=== PATIENT | female | born 1965 | race Caucasian/White ===

== ENCOUNTER 2020-01-27 13:45 | Inpatient (IN) | payer OTHER ==
[~2020-01-27] VITALS: Ht 185.4 cm; Wt 73.6 kg
--- NOTE | 2020-01-27 13:44 | NUR ---
Patient arrived to room 660 via EMS from [facility] at 1344. Patient A&OX4. VSS. No complaints of pain. Patient still complaining of having diarrhea. The patient, KATIANA VALLES, 54 y/o, F admitted by SONIA NASH MD, was given written information regarding hospital policies, unit procedures and contact persons. Valuables were checked and noted. Will continue to monitor.
[2020-01-27 14:00] VITALS: BP 108/71
--- NOTE | 2020-01-27 14:09 | PDOC1 ---
History and Physical Date of Admission Date of Admission DATE: 01/27/20 TIME: 14:08 Identification/Chief Complaint Chief Complaint SEEN IN ER [facility] with nausea, explosive diarrhea and fever x 3 days, no cough NO soa, covid 19 pending from 48 hrs ago, TEMP 104 DEG YESTERDAY VOLUME DEPLETED WITH HYPOTENSION , Denies known Covid contact, started on iv cipro, flagyl in ER, Noted to have neutropenia on cbc, ketonuria, c diff ordered Past Medical History Cardiovascular: No pertinent hx Pulmonary: No pertinent hx GI: No pertinent hx Hepatobiliary: No pertinent hx Infectious disease: No pertinent hx Renal/: No pertinent hx Family History Family History: Hypertension Social History Smoke: No ALCOHOL: none Drugs: None ROS General: YES: Chills, Other (fever) PSYCHOLOGICAL ROS: No: Anxiety, Behavioral Disorder, Concentration difficultie, Decreased libido, Depression, Disorientation, Hallucinations, Hostility, Irritablity, Memory difficulties, Mood Swings, Obsessive thoughts, Physical abuse, Sexual abuse, Sleep disturbances, Suicidal ideation, Other Eyes: No Blurry vision, No Decreased vision, No Double vision, No Dry eyes, No Excessive tearing, No Eye Pain, No Itchy Eyes, No Loss of vision, No Photophobia, No Scotomata, No Uses contacts, No Uses glasses, No Other HEENT: No: Heacaches, Visual Changes, Hearing change, Nasal congestion, Nasal discharge, Oral lesions, Sinus pain, Sore Throat, Epistaxis, Sneezing, Snoring, Tinnitus, Vertigo, Vocal changes, Other ALLERGY AND IMMUNOLOGY: No: Hives, Insect Bite Sensitivity, Itchy/Watery Eyes, Nasal Congestion, Post Nasal Drip, Seasonal Allergies, Other Hematological and Lymphatic: No: Bleeding Problems, Blood Clots, Blood Transfusions, Brusing, Night Sweats, Pallor, Swollen Lymph Nodes, Other Respiratory: No: Cough, Hemoptysis, Orthopnea, Pleuritic Pain, Shortness of breath, SOB with excertion, Sputum Changes, Stridor, Tachypnea, Wheezing, Other Cardiovascular: No Chest Pain, No Palpitations, No Orthopnea, No Paroxysmal Noc. Dyspnea, No Edema, No Lt Headedness, No Other Gastrointestinal: Yes Nausea, Yes Abdominal Pain, Yes Diarrhea; No Vomiting, No Constipation, No Melena, No Hematochezia, No Other Genitourinary: No Dysuria, No Frequency, No Incontinence, No Hematuria, No Retention, No Discharge, No Urgency, No Pain, No Flank Pain, No Other, No , No , No , No , No , No , No Musculoskeletal: No Gait Disturbance, No Joint Pain, No Joint Stiffness, No Joint Swelling, No Muscle Pain, No Muscular Weakness, No Pain In:, No Swelling In:, No Other Neurological: No Behavorial Changes, No Bowel/Bladder ControlChng, No Confusio n, No Dizziness, No Gait Disturbance, No Headaches, No Impaired Coord/balance, No Memory Loss, No Numbness/Tingling, No Seizures, No Speech Problems, No Tremors, No Visual Changes, No Weakness, No Other Skin: Yes Dry Skin; No Eczema, No Hair Changes, No Lumps, No Mole Changes, No Mottling, No Nail Changes, No Pruritus, No Rash, No Skin Lesion Changes, No Other, No Acne Physical Exam General: Alert, Oriented X3, Cooperative, No acute distress HEENT: Atraumatic, PERRLA Lungs: Clear to auscultation, Normal air movement Heart: RRR Breasts: Not examined Abdomen: Normal bowel sounds, Soft Rectal Exam: not examined PELVIC: Examination not indicated Extremities: No clubbing, No cyanosis Skin: No significant lesion Neuro: Normal speech, Sensation intact, Cranial nerves 3-12 NL Psych/Mental Status: Mental status NL, Mood NL VTE Prophylaxis Ordered VTE Prophylaxis Devices: Yes VTE Pharmacological Prophylaxi: Yes Assessment/Plan Assessment/Plan IMPRESSION 1. acute colitis, with terminal ilitis, POSSIBLE INFLAMMATORY BOWEL DISEASE 2, FEVER 3. ABDOMINAL PAIN WITH DIARRHEA 4. Generalized weakness 5. volume depletiopn with dehydration plan admit consult GI BLOOD CULTURES STOOL FOR ENTERIC PATHOGENS NPO IV FLUID SUPPORT COVID 19 SCREENING ID CONSULT ferritin crp ESR iv cipro, flagyl Justifications for Admission Other Justification SONIA NASH MD Jan 27, 2020 14:09
[2020-01-27] MEDS ORDERED: MAG HYDROX/ALUMINUM HYD/SIMETH 30 ML ORAL.SUSP PO PRN (14:30)
[2020-01-27] MEDS ORDERED: 0.9 % SODIUM CHLORIDE 10 ML DISP.SYRIN. IV PRN (14:30)
[2020-01-27] MEDS ORDERED: guaiFENesin ORAL 200 MG/10 ML LIQUID. PO PRN (14:30)
[2020-01-27] MEDS ORDERED: cloNIDine HCL 0.1 MG TABLET PO PRN (14:30)
[2020-01-27] MEDS ORDERED: ALBUTEROL SULFATE 2.5 MG/3 ML NEBU. NEB PRN (14:30)
--- NOTE | 2020-01-27 15:19 | PDOC2 ---
GI CONSULT Date of Service: DATE: 01/27/20 TIME: 15:07 Reason For Consult: acute colitis w/ fever HPI: HPI: Pleasant 54 y/o female transferred from [facility]. Ill since Sunday w/ diarrhea (watery green/brown, incontinent), bodyaches ("even my teeth hurt"), and fever (104 at home). Traveled to [place] last weekend x 4 days, got a new puppy on Sunday. Vomited once here but now is so thirsty. Decreased appetite overall. Also some intermittent lower abdominal discomfort. No chronic GI issues. Denies reflux/heartburn, dysphagia, hematemesis, hemat ochezia, melena, and constipation. Does have a h/o loose stools. No previous EGD or colonoscopy. No GB, liver, pancreas, or PUD history. No NSAIDs. No new medications recently. From [facility]: Notable labs: WBC 2.5, Hgb 13.6, plt 157, bili 1.7, normal AST and ALT and Alk Phos, normal lipase. CT A/P w/ IV contrast: moderate inflammatory fat stranding in RLQ surrounding a few distended SB loops with thickened appearance of wall of ascending colon, mildly dilated appendix, mildly prominent CBD (7.5mm), mildly distended stomach and GB, small free fluid in pelvis. PMH: PMH: partial hysterectomy FH: Family History: No pertinent hx (no GI history) Social History: Smoke: No ALCOHOL: occassional Drugs: None ROS: GEN: +fever HEENT: Denies blurred vision, sore throat CV: Denies chest pain RESP: Denies shortness of air, cough GI: Per HPI : Denies hematuria, dysuria ENDO: Denies weight changes NEURO: Denies confusion, dizziness MSK: +bodyaches SKIN: Denies jaundice, pruritus PE: GEN: NAD - up in chair, covered w/ blanket HEENT: Atraumatic, PERRL LUNGS: CTAB HEART: RRR ABD: NABS, S/ND, vague mild discomfort across lower abdomen EXTREMITY: No edema SKIN: No rashes, no jaundice NEURO/PSYCH: A & O 3 A/P: A/P: Diarrhea, bodyaches, fever Leukopenia Abnormal CT - moderate inflammatory fat stranding in RLQ surrounding a few distended SB loops with thickened appearance of wall of ascending colon CRC screen - none -- Apparently was tested for COVID @ [facility] over the weekend - results unknown. D/w Dr. Fagan - concern for salmonella - will check stool studies (pt says uncollected at [facility] because mixed with urine). Continue Cipro. She asks for water - can try clears. YANIRA ZHU Jan 27, 2020 15:19
[2020-01-27] MEDS: ENOXAPARIN 40 MG/0.4 ML SYRINGE. SQ SCH (15:31)
[2020-01-27] MEDS: IV NORMAL SALINE 1000ML BAG 1,000 ML IV SCH ×2 (15:32→20:59)
[2020-01-27 16:05] LABS: BASO % 0 % (0-3); EOS % 0 % (0-3); HEMATOCRIT 39.8 % (36.0-47.0); HEMOGLOBIN 13.5 g/dL (12.0-15.5); LYMPH # 0.3 x10^3/uL (1.0-4.8); LYMPH % 14 % (24-48); MEAN CORPUSCULAR HEMOGLOBIN 30 pg (25-35); MEAN CORPUSCULAR HGB CONC 34 g/dL (31-37); MEAN CORPUSCULAR VOLUME 89 fL (79-100); MONO # 0.3 x10^3/uL (0.0-1.1); MONO % 13 % (0-9); NEUT # 1.7 x10^3/uL (1.8-7.7); NEUT % 73 % (31-73); PLATELET COUNT 148 x10^3/uL (140-400); RED BLOOD COUNT 4.47 x10^6/uL (3.50-5.40); RED CELL DISTRIBUTION WIDTH 13.2 % (11.5-14.5); WHITE BLOOD COUNT 2.4 x10^3/uL (4.0-11.0)
[2020-01-27 16:51] LABS: ALBUMIN 2.7 g/dL (3.4-5.0); ALBUMIN/GLOBULIN RATIO 0.8 (1.0-1.7); CALCIUM 8.2 mg/dL (8.5-10.1); TOTAL PROTEIN 6.2 g/dL (6.4-8.2)
[2020-01-27 16:52] LABS: C-REACTIVE PROTEIN 232.7 mg/L (0-3.3); CREATININE 0.8 mg/dL (0.6-1.0); POTASSIUM 3.7 mmol/L (3.5-5.1)
[2020-01-27 19:00] VITALS: BP 88/52
[2020-01-27] MEDS: CIPROFLOXACIN 400MG PREMIX 200 ML IV SCH (20:58)
[2020-01-27] MEDS: ACETAMINOPHEN 325 MG TABLET. PO PRN (20:59)
[2020-01-27 23:00] VITALS: BP 85/45
[2020-01-28 03:00] VITALS: BP 97/67
[2020-01-28] MEDS: IV NORMAL SALINE 1000ML BAG 1,000 ML IV SCH ×4 (05:46→22:36)
[2020-01-28 07:00] VITALS: BP 102/58
[2020-01-28] MEDS: CIPROFLOXACIN 400MG PREMIX 200 ML IV SCH ×2 (08:50→22:36)
--- NOTE | 2020-01-28 10:03 | PDOC ---
Infectious Disease Note Vital Sign Vital Signs Vital Signs Date Time Temp Pulse Resp B/P (MAP) Pulse Ox O2 Delivery O2 Flow Rate FiO2 01/28/20 08:00 Room Air 01/28/20 07:00 98.2 77 16 102/58 (73) 97 98.2 Labs Lab Laboratory Tests Test 01/27/20 15:40 White Blood Count 2.4 x10^3/uL (4.0-11.0) Red Blood Count 4.47 x10^6/uL (3.50-5.40) Hemoglobin 13.5 g/dL (12.0-15.5) Hematocrit 39.8 % (36.0-47.0) Mean Corpuscular Volume 89 fL (79-100) Mean Corpuscular Hemoglobin 30 pg (25-35) Mean Corpuscular Hemoglobin Concent 34 g/dL (31-37) Red Cell Distribution Width 13.2 % (11.5-14.5) Platelet Count 148 x10^3/uL (140-400) Neutrophils (%) (Auto) 73 % (31-73) Lymphocytes (%) (Auto) 14 % (24-48) Monocytes (%) (Auto) 13 % (0-9) Eosinophils (%) (Auto) 0 % (0-3) Basophils (%) (Auto) 0 % (0-3) Neutrophils # (Auto) 1.7 x10^3/uL (1.8-7.7) Lymphocytes # (Auto) 0.3 x10^3/uL (1.0-4.8) Monocytes # (Auto) 0.3 x10^3/uL (0.0-1.1) Eosinophils # (Auto) 0.0 x10^3/uL (0.0-0.7) Basophils # (Auto) 0.0 x10^3/uL (0.0-0.2) Sodium Level 136 mmol/L (136-145) Potassium Level 3.7 mmol/L (3.5-5.1) Chloride Level 105 mmol/L (98-107) Carbon Dioxide Level 23 mmol/L (21-32) Anion Gap 8 (6-14) Blood Urea Nitrogen 6 mg/dL (7-20) Creatinine 0.8 mg/dL (0.6-1.0) Estimated GFR (Cockcroft-Gault) 75.0 BUN/Creatinine Ratio 8 (6-20) Glucose Level 181 mg/dL (70-99) Calcium Level 8.2 mg/dL (8.5-10.1) Ferritin 840 ng/mL (8-252) Total Bilirubin 1.0 mg/dL (0.2-1.0) Aspartate Amino Transf (AST/SGOT) 29 U/L (15-37) Alanine Aminotransferase (ALT/SGPT) 22 U/L (14-59) Alkaline Phosphatase 71 U/L (46-116) C-Reactive Protein, Quantitative 232.7 mg/L (0-3.3) Total Protein 6.2 g/dL (6.4-8.2) Albumin 2.7 g/dL (3.4-5.0) Albumin/Globulin Ratio 0.8 (1.0-1.7) Micro Abnormal CT - moderate inflammatory fat stranding in RLQ surrounding a few distended SB loops with thickened appearance of wall of ascending colon Objective Assessment Fever Leukopenia Diarrhea Colitis COVID neg Plan Plan of Care Cont Cipro/Flagyl - clinically some better F/u labs and cults - d/w micro Thank you # [id number] FARHEEN ANDERSON MD Jan 28, 2020 10:03
--- NOTE | 2020-01-28 10:18 | PDOC ---
Date of Service: DATE: 01/28/20 TIME: 10:16 Subjective: Subjective: Feels the same - ongoing diarrhea, lower abdominal ache, nausea. Wants to know if she can have mashed potatoes. Objective: Objective: Tmax 100 Vital Signs: Vital Signs Date Time Temp Pulse Resp B/P (MAP) Pulse Ox O2 Delivery O2 Flow Rate FiO2 01/28/20 08:00 Room Air 01/28/20 07:00 98.2 77 16 102/58 (73) 97 98.2 Labs: Laboratory Tests Test 01/27/20 15:40 White Blood Count 2.4 x10^3/uL Red Blood Count 4.47 x10^6/uL Hemoglobin 13.5 g/dL Hematocrit 39.8 % Mean Corpuscular Volume 89 fL Mean Corpuscular Hemoglobin 30 pg Mean Corpuscular Hemoglobin Concent 34 g/dL Red Cell Distribution Width 13.2 % Platelet Count 148 x10^3/uL Neutrophils (%) (Auto) 73 % Lymphocytes (%) (Auto) 14 % Monocytes (%) (Auto) 13 % Eosinophils (%) (Auto) 0 % Basophils (%) (Auto) 0 % Neutrophils # (Auto) 1.7 x10^3/uL Lymphocytes # (Auto) 0.3 x10^3/uL Monocytes # (Auto) 0.3 x10^3/uL Eosinophils # (Auto) 0.0 x10^3/uL Basophils # (Auto) 0.0 x10^3/uL Sodium Level 136 mmol/L Potassium Level 3.7 mmol/L Chloride Level 105 mmol/L Carbon Dioxide Level 23 mmol/L Anion Gap 8 Blood Urea Nitrogen 6 mg/dL Creatinine 0.8 mg/dL Estimated GFR (Cockcroft-Gault) 75.0 BUN/Creatinine Ratio 8 Glucose Level 181 mg/dL Calcium Level 8.2 mg/dL Ferritin 840 ng/mL Total Bilirubin 1.0 mg/dL Aspartate Amino Transf (AST/SGOT) 29 U/L Alanine Aminotransferase (ALT/SGPT) 22 U/L Alkaline Phosphatase 71 U/L C-Reactive Protein, Quantitative 232.7 mg/L Total Protein 6.2 g/dL Albumin 2.7 g/dL Albumin/Globulin Ratio 0.8 PE: GEN: NAD LUNGS: CTAB HEART: RRR ABD: BS+, soft, lower abdomen tender to light touch NEURO/PSYCH: A & O 3 A/P: Diarrhea, abd pain, bodyaches, fever Leukopenia, elevated CRP Abnormal CT - moderate inflammatory fat stranding in RLQ surrounding a few distended SB loops with thickened appearance of wall of ascending colon COVID negative @ [facility] -- Await pending tests. Antibiotics per ID. Would keep to clears for now. Justicifation of Admission Dx: Justifications for Admission: Justification of Admission Dx: Yes YANIRA ZHU Jan 28, 2020 10:18
--- NOTE | 2020-01-28 10:31 | PDOC ---
PROGRESS NOTES Date of Service: DATE: 01/28/20 TIME: 10:31 Chief Complaint Chief Complaint VTE Prophylaxis Ordered VTE Prophylaxis Devices: Yes VTE Pharmacological Prophylaxi: Yes Assessment/Plan IMPRESSION 1. acute colitis, with terminal ilitis, suspect acute INFLAMMATORY BOWEL DISEASE 2, FEVER 3. ABDOMINAL PAIN WITH DIARRHEA 4. Generalized weakness 5. volume depletion with dehydration 6. LEUKOPENIA crp 232 01/27 plan admit consult GI BLOOD CULTURES STOOL FOR ENTERIC PATHOGENS CLEAR LIQUIDS IV FLUID SUPPORT COVID 19 SCREENING ID CONSULT NOTED ferritin crp ESR iv cipro, flagyl heme consult D/W RN is dpoa 37 min pt exam, chart review, > 50% of time spent with exam, chart review, pt ca re coordination History of Present Illness History of Present Illness Identification/Chief Complaint Chief Complaint SEEN IN ER [facility] with nausea, explosive diarrhea and fever x 3 days, no cough NO soa, covid 19 pending from 48 hrs ago, TEMP 104 DEG 01/25 VOLUME DEPLETED WITH HYPOTENSION , Denies known Covid contact, started on iv cipro, flagyl in ER, Noted to have neutropenia on cbc, ketonuria, c diff ordered THEY HAVE A FRRM, WITH A POND that she swims in often Past Medical History Cardiovascular: No pertinent hx Pulmonary: No pertinent hx GI: No pertinent hx Hepatobiliary: No pertinent hx Infectious disease: No pertinent hx Renal/: No pertinent hx Family History Family History: Hypertension no fhx IBD Social History Smoke: No ALCOHOL: none Drugs: None Vitals Vitals Vital Signs Date Time Temp Pulse Resp B/P (MAP) Pulse Ox O2 Delivery O2 Flow Rate FiO2 01/28/20 08:00 Room Air 01/28/20 07:00 98.2 77 16 102/58 (73) 97 98.2 Physical Exam General: Alert, Oriented X3, Cooperative, No acute distress Heart: Regular rate, Normal S1, Normal S2 Lungs: Clear Abdomen: Normal bowel sounds, Soft, No tenderness Extremities: No clubbing, No cyanosis Skin: No significant lesion Labs LABS Laboratory Tests Test 01/27/20 15:40 White Blood Count 2.4 x10^3/uL (4.0-11.0) Red Blood Count 4.47 x10^6/uL (3.50-5.40) Hemoglobin 13.5 g/dL (12.0-15.5) Hematocrit 39.8 % (36.0-47.0) Mean Corpuscular Volume 89 fL (79-100) Mean Corpuscular Hemoglobin 30 pg (25-35) Mean Corpuscular Hemoglobin Concent 34 g/dL (31-37) Red Cell Distribution Width 13.2 % (11.5-14.5) Platelet Count 148 x10^3/uL (140-400) Neutrophils (%) (Auto) 73 % (31-73) Lymphocytes (%) (Auto) 14 % (24-48) Monocytes (%) (Auto) 13 % (0-9) Eosinophils (%) (Auto) 0 % (0-3) Basophils (%) (Auto) 0 % (0-3) Neutrophils # (Auto) 1.7 x10^3/uL (1.8-7.7) Lymphocytes # (Auto) 0.3 x10^3/uL (1.0-4.8) Monocytes # (Auto) 0.3 x10^3/uL (0.0-1.1) Eosinophils # (Auto) 0.0 x10^3/uL (0.0-0.7) Basophils # (Auto) 0.0 x10^3/uL (0.0-0.2) Sodium Level 136 mmol/L (136-145) Potassium Level 3.7 mmol/L (3.5-5.1) Chloride Level 105 mmol/L (98-107) Carbon Dioxide Level 23 mmol/L (21-32) Anion Gap 8 (6-14) Blood Urea Nitrogen 6 mg/dL (7-20) Creatinine 0.8 mg/dL (0.6-1.0) Estimated GFR (Cockcroft-Gault) 75.0 BUN/Creatinine Ratio 8 (6-20) Glucose Level 181 mg/dL (70-99) Calcium Level 8.2 mg/dL (8.5-10.1) Ferritin 840 ng/mL (8-252) Total Bilirubin 1.0 mg/dL (0.2-1.0) Aspartate Amino Transf (AST/SGOT) 29 U/L (15-37) Alanine Aminotransferase (ALT/SGPT) 22 U/L (14-59) Alkaline Phosphatase 71 U/L (46-116) C-Reactive Protein, Quantitative 232.7 mg/L (0-3.3) Total Protein 6.2 g/dL (6.4-8.2) Albumin 2.7 g/dL (3.4-5.0) Albumin/Globulin Ratio 0.8 (1.0-1.7) Assessment and Plan Assessmemt and Plan What Is a Power of Company Manager? A power of state's attorney (POA) is a legal document giving one person (the agent or [id number]) the power to act for another person (the principal). The agent can have broad legal authority or limited authority to make legal decisions about the principal's property, finances or medical care. The power of state's attorney is frequently used in the event of a principal's illness or disability, or when the principal can't be present to sign necessary legal documents for financial transactions. A power of state's attorney can end for a number of reasons, such as when the principal dies, the principal revokes it, a court invalidates it, the principal divorces their spouse, who happens to be the agent, or the agent can no longer carry out the outlined responsibilities. Conventional POAs lapse when the creator becomes incapacitated, but a durable POA remains in force to enable the agent to manage the creators affairs, and a springing POA comes into effect only if and when the creator of the POA becomes incapacitated. A medical or healthcare POA enables an agent to make medical decisions on behalf of an incapacitated person. [employer] Take[employer] A power of state's attorney (POA) is a legal document giving one person, the agent or [id number] the power to act for another person, the principal. The agent can have broad legal authority or limited authority to make decisions about the principal's property, finances or medical care. The power of state's attorney is often used when a principal becomes ill or disabled, or when they can't be present to sign necessary legal documents for financial transactions. Understanding Power of Company Manager A power of state's attorney should be considered when planning for long-term care. There are different types of POAs that fall under either a general power of state's attorney or limited power of state's attorney. Comment Review of Relevant I have reviewed the following items wiliam (where applicable) has been applied. Labs Laboratory Tests Test 01/27/20 15:40 White Blood Count 2.4 x10^3/uL (4.0-11.0) Red Blood Count 4.47 x10^6/uL (3.50-5.40) Hemoglobin 13.5 g/dL (12.0-15.5) Hematocrit 39.8 % (36.0-47.0) Mean Corpuscular Volume 89 fL (79-100) Mean Corpuscular Hemoglobin 30 pg (25-35) Mean Corpuscular Hemoglobin Concent 34 g/dL (31-37) Red Cell Distribution Width 13.2 % (11.5-14.5) Platelet Count 148 x10^3/uL (140-400) Neutrophils (%) (Auto) 73 % (31-73) Lymphocytes (%) (Auto) 14 % (24-48) Monocytes (%) (Auto) 13 % (0-9) Eosinophils (%) (Auto) 0 % (0-3) Basophils (%) (Auto) 0 % (0-3) Neutrophils # (Auto) 1.7 x10^3/uL (1.8-7.7) Lymphocytes # (Auto) 0.3 x10^3/uL (1.0-4.8) Monocytes # (Auto) 0.3 x10^3/uL (0.0-1.1) Eosinophils # (Auto) 0.0 x10^3/uL (0.0-0.7) Basophils # (Auto) 0.0 x10^3/uL (0.0-0.2) Sodium Level 136 mmol/L (136-145) Potassium Level 3.7 mmol/L (3.5-5.1) Chloride Level 105 mmol/L (98-107) Carbon Dioxide Level 23 mmol/L (21-32) Anion Gap 8 (6-14) Blood Urea Nitrogen 6 mg/dL (7-20) Creatinine 0.8 mg/dL (0.6-1.0) Estimated GFR (Cockcroft-Gault) 75.0 BUN/Creatinine Ratio 8 (6-20) Glucose Level 181 mg/dL (70-99) Calcium Level 8.2 mg/dL (8.5-10.1) Ferritin 840 ng/mL (8-252) Total Bilirubin 1.0 mg/dL (0.2-1.0) Aspartate Amino Transf (AST/SGOT) 29 U/L (15-37) Alanine Aminotransferase (ALT/SGPT) 22 U/L (14-59) Alkaline Phosphatase 71 U/L (46-116) C-Reactive Protein, Quantitative 232.7 mg/L (0-3.3) Total Protein 6.2 g/dL (6.4-8.2) Albumin 2.7 g/dL (3.4-5.0) Albumin/Globulin Ratio 0.8 (1.0-1.7) Laboratory Tests Test 01/27/20 15:40 White Blood Count 2.4 x10^3/uL (4.0-11.0) Red Blood Count 4.47 x10^6/uL (3.50-5.40) Hemoglobin 13.5 g/dL (12.0-15.5) Hematocrit 39.8 % (36.0-47.0) Mean Corpuscular Volume 89 fL (79-100) Mean Corpuscular Hemoglobin 30 pg (25-35) Mean Corpuscular Hemoglobin Concent 34 g/dL (31-37) Red Cell Distribution Width 13.2 % (11.5-14.5) Platelet Count 148 x10^3/uL (140-400) Neutrophils (%) (Auto) 73 % (31-73) Lymphocytes (%) (Auto) 14 % (24-48) Monocytes (%) (Auto) 13 % (0-9) Eosinophils (%) (Auto) 0 % (0-3) Basophils (%) (Auto) 0 % (0-3) Neutrophils # (Auto) 1.7 x10^3/uL (1.8-7.7) Lymphocytes # (Auto) 0.3 x10^3/uL (1.0-4.8) Monocytes # (Auto) 0.3 x10^3/uL (0.0-1.1) Eosinophils # (Auto) 0.0 x10^3/uL (0.0-0.7) Basophils # (Auto) 0.0 x10^3/uL (0.0-0.2) Sodium Level 136 mmol/L (136-145) Potassium Level 3.7 mmol/L (3.5-5.1) Chloride Level 105 mmol/L (98-107) Carbon Dioxide Level 23 mmol/L (21-32) Anion Gap 8 (6-14) Blood Urea Nitrogen 6 mg/dL (7-20) Creatinine 0.8 mg/dL (0.6-1.0) Estimated GFR (Cockcroft-Gault) 75.0 BUN/Creatinine Ratio 8 (6-20) Glucose Level 181 mg/dL (70-99) Calcium Level 8.2 mg/dL (8.5-10.1) Ferritin 840 ng/mL (8-252) Total Bilirubin 1.0 mg/dL (0.2-1.0) Aspartate Amino Transf (AST/SGOT) 29 U/L (15-37) Alanine Aminotransferase (ALT/SGPT) 22 U/L (14-59) Alkaline Phosphatase 71 U/L (46-116) C-Reactive Protein, Quantitative 232.7 mg/L (0-3.3) Total Protein 6.2 g/dL (6.4-8.2) Albumin 2.7 g/dL (3.4-5.0) Albumin/Globulin Ratio 0.8 (1.0-1.7) Medications Current Medications Ciprofloxacin/ Dextrose 200 ml @ 200 mls/hr Q12HR IV Last administered on 01/28/20at 08:50; Start 01/27/20 at 21:00 Metronidazole 100 ml @ 100 mls/hr Q8HRS IV Last administered on 01/28/20at 05:47; Start 01/27/20 at 15:30 Sodium Chloride (Normal Saline Flush) 3 ml QSHIFT PRN IV AFTER MEDS AND BLOOD DRAWS; Start 01/27/20 at 14:30 Sodium Chloride 1,000 ml @ 150 mls/hr Q6H40M IV Last administered on 01/28/20at 05:46; Start 01/27/20 at 14:27 Ondansetron HCl (Zofran) 4 mg PRN Q4HRS PRN IV NAUSEA/VOMITING; Start 01/27/20 at 14:30 Acetaminophen (Tylenol) 650 mg PRN Q4HRS PRN PO TEMP OVER 100.4F OR MILD PAIN Last administered on 01/27/20at 20:59; Start 01/27/20 at 14:30 Al Hydroxide/Mg Hydroxide (Mylanta Plus Xs) 30 ml PRN DAILY PRN PO HEARTBURN / GAS; Start 01/27/20 at 14:30 Clonidine HCl (Catapres) 0.1 mg PRN Q6HRS PRN PO SBP>160 OR DBP>90; Start 01/27/20 at 14:30 Albuterol Sulfate (Ventolin Neb Soln) 2.5 mg PRN Q4HRS PRN NEB SHORTNESS OF BREATH; Start 01/27/20 at 14:30 Guaifenesin (Robitussin) 200 mg PRN Q4HRS PRN PO COUGH; Start 01/27/20 at 14:30 Lorazepam (Ativan) 0.5 mg PRN Q4HRS PRN PO ANXIETY / AGITATION; Start 01/27/20 at 14:30 Enoxaparin Sodium (Lovenox 40mg Syringe) 40 mg Q24H SQ Last administered on 01/27/20at 15:31; Start 01/27/20 at 16:00 Active Scripts Active Reported No Known Medications Prior To Admisstion (Info) Each 1 Each 1X Vitals/I & O Vital Sign - Last 24 Hours 01/27/20 01/27/20 01/27/20 01/27/20 14:00 14:00 19:00 20:00 Temp 98.6 100.0 98.6 100.0 Pulse 90 90 Resp 12 18 B/P (MAP) 108/71 (83) 88/52 (64) Pulse Ox 100 96 O2 Delivery Room Air Room Air Room Air Room Air 01/27/20 01/28/20 01/28/20 01/28/20 23:00 03:00 07:00 08:00 Temp 98.3 98.4 98.2 98.3 98.4 98.2 Pulse 77 67 77 Resp 18 18 16 B/P (MAP) 85/45 (58) 97/67 (77) 102/58 (73) Pulse Ox 96 96 97 O2 Delivery Room Air Room Air Room Air Room Air Intake and Output 01/27/20 01/27/20 01/28/20 15:00 23:00 07:00 Intake Total 640 ml Balance 640 ml Justicifation of Admission Dx: Justifications for Admission: Justification of Admission Dx: Yes SONIA NASH MD Jan 28, 2020 10:31
[2020-01-28] MEDS: ACETAMINOPHEN 325 MG TABLET. PO PRN ×3 (10:57→20:51)
[2020-01-28 11:06] VITALS: BP 123/73
--- NOTE | 2020-01-28 11:22 | CONS ---
DATE OF CONSULTATION: 01/28/2020 LOCATION: The patient's room is 662. REQUESTING PHYSICIAN: Dr. Hernandez. REASON FOR CONSULTATION: Fever and diarrhea. HISTORY OF PRESENT ILLNESS: The patient is a 54-year-old female without significant past medical history aside from a partial hysterectomy, who presented to [facility] secondary to development of fever; watery diarrhea, green, brown; incontinence and body aches with fever of a 104. She did travel to [place] on 01/15, returned on 01/18. Denies any ill contacts. She has not taken any antimicrobials for approximately 10 years and denies any contact with anybody who has recently had any antimicrobials or diarrhea. 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 She had vomited once. Her appetite has decreased and from [facility], she was transferred to [facility]. Of note, she did have a white blood cell count of 2.5. She underwent a CT scan of the abdomen and pelvis showed moderate inflammatory fat stranding in the right lower quadrant, shown in a few distended small bowel loops with thickened appearance of the wall of the ascending colon with mildly dilated appendix, mildly prominent common bile duct of 7.5 mm, mildly distended stomach and gallbladder, small free fluid in the pelvis. She was placed on Flagyl as well as ciprofloxacin. Her temperature curve has improved here. She is still having some loose stools, but does feel somewhat better with some decreasing pain and has increased appetite. She has no chest discomfort. No shortness of air. Denies any ill contacts. No dysuria, frequency, or urgency. She denies any rashes. PAST MEDICAL HISTORY: Essentially negative aside from a partial hysterectomy. REVIEW OF SYSTEMS: Otherwise negative except for mentioned above. ALLERGIES: No known drug allergies. SOCIAL HISTORY: Occasional alcohol. No tobacco. Does live in a farm. Denies any ill contacts. FAMILY HISTORY: Negative for any Crohn's disease or ulcerative colitis or other GI history and no ill contacts. CURRENT MEDICATIONS: Include IV ciprofloxacin, IV metronidazole and p.r.n. medications including Tylenol, Ventolin, Catapres, Lovenox, guaifenesin, lorazepam, trimethoprim and Zofran. PHYSICAL EXAMINATION: VITAL SIGNS: T-max has been 100, currently 98.2, pulse 77, respirations 16, blood pressure 102/58, satting 97% on room air. CONSTITUTIONAL: She is lying in bed. She appears cooperative. She appears comfortable. She is in no acute distress. HEENT: Pupils are equal and reactive. She has normal conjunctivae. Oral cavity, pharynx was clear. NECK: Supple. Good range of motion. LUNGS: Clear to auscultation bilaterally. HEART: S1, S2. ABDOMEN: Flat, nondistended. Some mild tenderness. There is no guarding or rebound. EXTREMITIES: Without clubbing or cyanosis. No gross edema. SKIN: Without generalized rash and is warm to touch. NEUROLOGIC: She is nonfocal. PSYCHIATRIC: Affect is appropriate. LABORATORY DATA: White count 2.4, hemoglobin 13.5, platelets 148, neutrophils 73, lymphs were 14, monos were 13. Creatinine is 0.8, glucose was 181, AST 29, ALT 22, alkaline phosphatase 71. C-reactive protein of 232.7. Albumin of 2.7. RADIOLOGY: Reviewed in history of present illness. IMPRESSION: 1. Fever. 2. Leukopenia. 3. Diarrhea. 4. Colitis. 5. Her COVID test was negative. RECOMMENDATIONS: Continue Cipro and Flagyl. Clinically, she is some better. We will follow up labs and cultures. I did discuss with Micro, blood cultures have been ordered as well as stool samples and urine. We will obtain laboratory values in the morning. Thank you Ms. Kathie Barahona for asking us to participate in this patient's care. Should you have further questions or concerns, please do not hesitate to contact me. FARHEEN ANDERSON MD DR: JEFFRY/cody JOB#: [id number] / [id number] NATALIIA
[2020-01-28 14:44] VITALS: BP 116/68
[2020-01-28] MEDS: ENOXAPARIN 40 MG/0.4 ML SYRINGE. SQ SCH (17:41)
[2020-01-28 19:00] VITALS: BP 108/63
[2020-01-28] MEDS: LORazepam 0.5 MG TABLET PO PRN (20:51)
[2020-01-28 22:46] VITALS: BP 118/65
[2020-01-29 03:00] VITALS: BP 113/67
[2020-01-29 05:27] LABS: BASO % 0 % (0-3); EOS % 1 % (0-3); HEMATOCRIT 31.5 % (36.0-47.0); HEMOGLOBIN 10.8 g/dL (12.0-15.5); LYMPH # 0.8 x10^3/uL (1.0-4.8); LYMPH % 30 % (24-48); MEAN CORPUSCULAR HEMOGLOBIN 30 pg (25-35); MEAN CORPUSCULAR HGB CONC 34 g/dL (31-37); MEAN CORPUSCULAR VOLUME 88 fL (79-100); MONO # 0.3 x10^3/uL (0.0-1.1); MONO % 10 % (0-9); NEUT # 1.6 x10^3/uL (1.8-7.7); NEUT % 59 % (31-73); PLATELET COUNT 131 x10^3/uL (140-400); RED BLOOD COUNT 3.59 x10^6/uL (3.50-5.40); RED CELL DISTRIBUTION WIDTH 13.3 % (11.5-14.5); WHITE BLOOD COUNT 2.6 x10^3/uL (4.0-11.0)
[2020-01-29 06:17] LABS: ALBUMIN 2.3 g/dL (3.4-5.0); ALBUMIN/GLOBULIN RATIO 0.8 (1.0-1.7); CALCIUM 8.2 mg/dL (8.5-10.1); CREATININE 0.6 mg/dL (0.6-1.0); GFR 104.6; POTASSIUM 3.4 mmol/L (3.5-5.1); TOTAL BILIRUBIN 0.3 mg/dL (0.2-1.0); TOTAL PROTEIN 5.1 g/dL (6.4-8.2)
--- NOTE | 2020-01-29 07:18 | PDOC ---
PROGRESS NOTES Date of Service: DATE: 01/29/20 TIME: 07:18 Chief Complaint Chief Complaint VTE Prophylaxis Ordered VTE Prophylaxis Devices: Yes VTE Pharmacological Prophylaxi: Yes Assessment/Plan IMPRESSION 1. acute colitis, with terminal ilitis, suspect acute INFLAMMATORY BOWEL DISEASE 2, FEVER 3. ABDOMINAL PAIN WITH DIARRHEA 4. Generalized weakness 5. volume depletion with dehydration 6. LEUKOPENIA 7. SEVERE PROTEIN-CALORIC MALNUTRITION crp 232 01/27 01/28 NO FEVER TODAY, second covid pending D/W RN plan admit consult GI BLOOD CULTURES STOOL FOR ENTERIC PATHOGENS CLEAR LIQUIDS IV FLUID SUPPORT COVID 19 SCREENING ID CONSULT NOTED ferritin crp ESR iv cipro, flagyl heme consult D/W RN is dpoa 27 min pt exam, chart review, > 50% of time spent with exam, chart review, pt care coordination History of Present Illness History of Present Illness Identification/Chief Complaint Chief Complaint SEEN IN ER [facility] with nausea, explosive diarrhea and fever x 3 days, no cough NO soa, covid 19 pending from 48 hrs ago, TEMP 104 DEG 01/25 VOLUME DEPLETED WITH HYPOTENSION , Denies known Covid contact, started on iv cipro, flagyl in ER, Noted to have neutropenia on cbc, ketonuria, c diff ordered THEY HAVE A FRRM, WITH A POND that she swims in often Past Medical History Cardiovascular: No pertinent hx Pulmonary: No pertinent hx GI: No pertinent hx Hepatobiliary: No pertinent hx Infectious disease: No pertinent hx Renal/: No pertinent hx Family History Family History: Hypertension no fhx IBD Social History Smoke: No ALCOHOL: none Drugs: None Vitals Vitals Vital Signs Date Time Temp Pulse Resp B/P (MAP) Pulse Ox O2 Delivery O2 Flow Rate FiO2 01/29/20 03:00 98.2 71 18 113/67 (82) 98 Room Air 98.2 Physical Exam General: Alert, Oriented X3, Cooperative, No acute distress Heart: Regular rate, Normal S1, Normal S2 Lungs: Clear Abdomen: Normal bowel sounds, Soft, No tenderness Extremities: No clubbing, No cyanosis Skin: No significant lesion Labs LABS Laboratory Tests Test 01/28/20 09:45 01/29/20 04:17 Stool Campylobacter PCR Positive (NEGATIVE) Stool E. coli Shiga Toxins (PCR) Negative (NEGATIVE) Stool Salmonella PCR Negative (NEGATIVE) Stool Shigella PCR Negative (NEGATIVE) Clostridium difficile Toxin (PCR) Negative (NEGATIVE) White Blood Count 2.6 x10^3/uL (4.0-11.0) Red Blood Count 3.59 x10^6/uL (3.50-5.40) Hemoglobin 10.8 g/dL (12.0-15.5) Hematocrit 31.5 % (36.0-47.0) Mean Corpuscular Volume 88 fL (79-100) Mean Corpuscular Hemoglobin 30 pg (25-35) Mean Corpuscular Hemoglobin Concent 34 g/dL (31-37) Red Cell Distribution Width 13.3 % (11.5-14.5) Platelet Count 131 x10^3/uL (140-400) Neutrophils (%) (Auto) 59 % (31-73) Lymphocytes (%) (Auto) 30 % (24-48) Monocytes (%) (Auto) 10 % (0-9) Eosinophils (%) (Auto) 1 % (0-3) Basophils (%) (Auto) 0 % (0-3) Neutrophils # (Auto) 1.6 x10^3/uL (1.8-7.7) Lymphocytes # (Auto) 0.8 x10^3/uL (1.0-4.8) Monocytes # (Auto) 0.3 x10^3/uL (0.0-1.1) Eosinophils # (Auto) 0.0 x10^3/uL (0.0-0.7) Basophils # (Auto) 0.0 x10^3/uL (0.0-0.2) Sodium Level 141 mmol/L (136-145) Potassium Level 3.4 mmol/L (3.5-5.1) Chloride Level 108 mmol/L (98-107) Carbon Dioxide Level 25 mmol/L (21-32) Anion Gap 8 (6-14) Blood Urea Nitrogen 5 mg/dL (7-20) Creatinine 0.6 mg/dL (0.6-1.0) Estimated GFR (Cockcroft-Gault) 104.6 BUN/Creatinine Ratio 8 (6-20) Glucose Level 142 mg/dL (70-99) Calcium Level 8.2 mg/dL (8.5-10.1) Total Bilirubin 0.3 mg/dL (0.2-1.0) Aspartate Amino Transf (AST/SGOT) 21 U/L (15-37) Alanine Aminotransferase (ALT/SGPT) 17 U/L (14-59) Alkaline Phosphatase 62 U/L (46-116) Total Protein 5.1 g/dL (6.4-8.2) Albumin 2.3 g/dL (3.4-5.0) Albumin/Globulin Ratio 0.8 (1.0-1.7) Comment Review of Relevant I have reviewed the following items wiliam (where applicable) has been applied. Labs Laboratory Tests Test 01/27/20 15:40 01/28/20 09:45 01/29/20 04:17 White Blood Count 2.4 x10^3/uL (4.0-11.0) 2.6 x10^3/uL (4.0-11.0) Red Blood Count 4.47 x10^6/uL (3.50-5.40) 3.59 x10^6/uL (3.50-5.40) Hemoglobin 13.5 g/dL (12.0-15.5) 10.8 g/dL (12.0-15.5) Hematocrit 39.8 % (36.0-47.0) 31.5 % (36.0-47.0) Mean Corpuscular Volume 89 fL (79-100) 88 fL (79-100) Mean Corpuscular Hemoglobin 30 pg (25-35) 30 pg (25-35) Mean Corpuscular Hemoglobin Concent 34 g/dL (31-37) 34 g/dL (31-37) Red Cell Distribution Width 13.2 % (11.5-14.5) 13.3 % (11.5-14.5) Platelet Count 148 x10^3/uL (140-400) 131 x10^3/uL (140-400) Neutrophils (%) (Auto) 73 % (31-73) 59 % (31-73) Lymphocytes (%) (Auto) 14 % (24-48) 30 % (24-48) Monocytes (%) (Auto) 13 % (0-9) 10 % (0-9) Eosinophils (%) (Auto) 0 % (0-3) 1 % (0-3) Basophils (%) (Auto) 0 % (0-3) 0 % (0-3) Neutrophils # (Auto) 1.7 x10^3/uL (1.8-7.7) 1.6 x10^3/uL (1.8-7.7) Lymphocytes # (Auto) 0.3 x10^3/uL (1.0-4.8) 0.8 x10^3/uL (1.0-4.8) Monocytes # (Auto) 0.3 x10^3/uL (0.0-1.1) 0.3 x10^3/uL (0.0-1.1) Eosinophils # (Auto) 0.0 x10^3/uL (0.0-0.7) 0.0 x10^3/uL (0.0-0.7) Basophils # (Auto) 0.0 x10^3/uL (0.0-0.2) 0.0 x10^3/uL (0.0-0.2) Sodium Level 136 mmol/L (136-145) 141 mmol/L (136-145) Potassium Level 3.7 mmol/L (3.5-5.1) 3.4 mmol/L (3.5-5.1) Chloride Level 105 mmol/L (98-107) 108 mmol/L (98-107) Carbon Dioxide Level 23 mmol/L (21-32) 25 mmol/L (21-32) Anion Gap 8 (6-14) 8 (6-14) Blood Urea Nitrogen 6 mg/dL (7-20) 5 mg/dL (7-20) Creatinine 0.8 mg/dL (0.6-1.0) 0.6 mg/dL (0.6-1.0) Estimated GFR (Cockcroft-Gault) 75.0 104.6 BUN/Creatinine Ratio 8 (6-20) 8 (6-20) Glucose Level 181 mg/dL (70-99) 142 mg/dL (70-99) Calcium Level 8.2 mg/dL (8.5-10.1) 8.2 mg/dL (8.5-10.1) Ferritin 840 ng/mL (8-252) Total Bilirubin 1.0 mg/dL (0.2-1.0) 0.3 mg/dL (0.2-1.0) Aspartate Amino Transf (AST/SGOT) 29 U/L (15-37) 21 U/L (15-37) Alanine Aminotransferase (ALT/SGPT) 22 U/L (14-59) 17 U/L (14-59) Alkaline Phosphatase 71 U/L (46-116) 62 U/L (46-116) C-Reactive Protein, Quantitative 232.7 mg/L (0-3.3) Total Protein 6.2 g/dL (6.4-8.2) 5.1 g/dL (6.4-8.2) Albumin 2.7 g/dL (3.4-5.0) 2.3 g/dL (3.4-5.0) Albumin/Globulin Ratio 0.8 (1.0-1.7) 0.8 (1.0-1.7) Stool Campylobacter PCR Positive (NEGATIVE) Stool E. coli Shiga Toxins (PCR) Negative (NEGATIVE) Stool Salmonella PCR Negative (NEGATIVE) Stool Shigella PCR Negative (NEGATIVE) Clostridium difficile Toxin (PCR) Negative (NEGATIVE) Laboratory Tests Test 01/28/20 09:45 01/29/20 04:17 Stool Campylobacter PCR Positive (NEGATIVE) Stool E. coli Shiga Toxins (PCR) Negative (NEGATIVE) Stool Salmonella PCR Negative (NEGATIVE) Stool Shigella PCR Negative (NEGATIVE) Clostridium difficile Toxin (PCR) Negative (NEGATIVE) White Blood Count 2.6 x10^3/uL (4.0-11.0) Red Blood Count 3.59 x10^6/uL (3.50-5.40) Hemoglobin 10.8 g/dL (12.0-15.5) Hematocrit 31.5 % (36.0-47.0) Mean Corpuscular Volume 88 fL (79-100) Mean Corpuscular Hemoglobin 30 pg (25-35) Mean Corpuscular Hemoglobin Concent 34 g/dL (31-37) Red Cell Distribution Width 13.3 % (11.5-14.5) Platelet Count 131 x10^3/uL (140-400) Neutrophils (%) (Auto) 59 % (31-73) Lymphocytes (%) (Auto) 30 % (24-48) Monocytes (%) (Auto) 10 % (0-9) Eosinophils (%) (Auto) 1 % (0-3) Basophils (%) (Auto) 0 % (0-3) Neutrophils # (Auto) 1.6 x10^3/uL (1.8-7.7) Lymphocytes # (Auto) 0.8 x10^3/uL (1.0-4.8) Monocytes # (Auto) 0.3 x10^3/uL (0.0-1.1) Eosinophils # (Auto) 0.0 x10^3/uL (0.0-0.7) Basophils # (Auto) 0.0 x10^3/uL (0.0-0.2) Sodium Level 141 mmol/L (136-145) Potassium Level 3.4 mmol/L (3.5-5.1) Chloride Level 108 mmol/L (98-107) Carbon Dioxide Level 25 mmol/L (21-32) Anion Gap 8 (6-14) Blood Urea Nitrogen 5 mg/dL (7-20) Creatinine 0.6 mg/dL (0.6-1.0) Estimated GFR (Cockcroft-Gault) 104.6 BUN/Creatinine Ratio 8 (6-20) Glucose Level 142 mg/dL (70-99) Calcium Level 8.2 mg/dL (8.5-10.1) Total Bilirubin 0.3 mg/dL (0.2-1.0) Aspartate Amino Transf (AST/SGOT) 21 U/L (15-37) Alanine Aminotransferase (ALT/SGPT) 17 U/L (14-59) Alkaline Phosphatase 62 U/L (46-116) Total Protein 5.1 g/dL (6.4-8.2) Albumin 2.3 g/dL (3.4-5.0) Albumin/Globulin Ratio 0.8 (1.0-1.7) Microbiology 01/27/20 Blood Culture - Preliminary, Resulted NO GROWTH AFTER 1 DAY Medications Current Medications Ciprofloxacin/ Dextrose 200 ml @ 200 mls/hr Q12HR IV Last administered on 01/28/20at 22:36; Start 01/27/20 at 21:00 Metronidazole 100 ml @ 100 mls/hr Q8HRS IV Last administered on 01/29/20at 05:16; Start 01/27/20 at 15:30 Sodium Chloride (Normal Saline Flush) 3 ml QSHIFT PRN IV AFTER MEDS AND BLOOD DRAWS; Start 01/27/20 at 14:30 Sodium Chloride 1,000 ml @ 150 mls/hr Q6H40M IV Last administered on 01/28/20at 22:36; Start 01/27/20 at 14:27 Ondansetron HCl (Zofran) 4 mg PRN Q4HRS PRN IV NAUSEA/VOMITING; Start 01/27/20 at 14:30 Acetaminophen (Tylenol) 650 mg PRN Q4HRS PRN PO TEMP OVER 100.4F OR MILD PAIN Last administered on 01/28/20at 20:51; Start 01/27/20 at 14:30 Al Hydroxide/Mg Hydroxide (Mylanta Plus Xs) 30 ml PRN DAILY PRN PO HEARTBURN / GAS; Start 01/27/20 at 14:30 Clonidine HCl (Catapres) 0.1 mg PRN Q6HRS PRN PO SBP>160 OR DBP>90; Start 01/27/20 at 14:30 Albuterol Sulfate (Ventolin Neb Soln) 2.5 mg PRN Q4HRS PRN NEB SHORTNESS OF BREATH; Start 01/27/20 at 14:30 Guaifenesin (Robitussin) 200 mg PRN Q4HRS PRN PO COUGH; Start 01/27/20 at 14:30 Lorazepam (Ativan) 0.5 mg PRN Q4HRS PRN PO ANXIETY / AGITATION Last administered on 01/28/20at 20:51; Start 01/27/20 at 14:30 Enoxaparin Sodium (Lovenox 40mg Syringe) 40 mg Q24H SQ Last administered on 01/28/20at 17:41; Start 01/27/20 at 16:00 Active Scripts Active Reported No Known Medications Prior To Admisstion (Info) Each 1 Each 1X Vitals/I & O Vital Sign - Last 24 Hours 01/28/20 01/28/20 01/28/20 01/28/20 08:00 11:06 14:44 19:00 Temp 98.4 98.1 98.1 98.4 98.1 98.1 Pulse 69 66 67 Resp 18 16 18 B/P (MAP) 123/73 (90) 116/68 (84) 108/63 (78) Pulse Ox 100 98 98 O2 Delivery Room Air Room Air Room Air Room Air 01/28/20 01/28/20 01/29/20 20:00 22:46 03:00 Temp 98.2 98.2 98.2 98.2 Pulse 85 71 Resp 18 18 B/P (MAP) 118/65 (82) 113/67 (82) Pulse Ox 98 98 O2 Delivery Room Air Room Air Room Air Intake and Output 01/28/20 01/28/20 01/29/20 15:00 23:00 07:00 Intake Total 600 ml 1200 ml 300 ml Balance 600 ml 1200 ml 300 ml Justicifation of Admission Dx: Justifications for Admission: Justification of Admission Dx: Yes SONIA NASH MD Jan 29, 2020 07:18
[2020-01-29 07:30] VITALS: BP 112/67
[2020-01-29] MEDS: IV NORMAL SALINE 1000ML BAG 1,000 ML IV SCH ×3 (09:07→19:47)
[2020-01-29] MEDS: CIPROFLOXACIN 400MG PREMIX 200 ML IV SCH (09:07)
[2020-01-29] MEDS: ACETAMINOPHEN 325 MG TABLET. PO PRN ×3 (09:34→21:37)
[2020-01-29] MEDS: ONDANSETRON PF 4 MG/2 ML VIAL. IV PRN ×3 (09:34→21:37)
--- NOTE | 2020-01-29 10:43 | PDOC ---
Date of Service: DATE: 01/29/20 TIME: 10:39 Subjective: Subjective: Less diarrhea but doesn't feel well. Some retching. Abd pain not terrible but still there. Wants toast. Objective: Objective: D/w nurse - ate toast last night. Vital Signs: Vital Signs Date Time Temp Pulse Resp B/P (MAP) Pulse Ox O2 Delivery O2 Flow Rate FiO2 01/29/20 07:30 98.0 55 16 112/67 (82) 98 Room Air 98.0 PE: GEN: NAD LUNGS: CTAB HEART: RRR ABD: quiet, soft, uncomfortable RLQ>LLQ NEURO/PSYCH: A & O 3, tearful A/P: +campylobacter - ID following Leukopenia, thrombocytopenia, normocytic anemia Abnormal CT - moderate inflammatory fat stranding in RLQ surrounding a few distended SB loops with thickened appearance of wall of ascending colon -- Diarrhea and fever better but still feels bad. Can try advancing diet - d/w nurse. Justicifation of Admission Dx: Justifications for Admission: Justification of Admission Dx: Yes YANIRA ZHU Jan 29, 2020 10:43
--- NOTE | 2020-01-29 10:50 | PDOC ---
Infectious Disease Note Subjective Subjective Did not feel well this am but now eating some Still nausea and vomited once. Fever better. No diarrhea ROS ROS o/w neg Vital Sign Vital Signs Vital Signs Date Time Temp Pulse Resp B/P (MAP) Pulse Ox O2 Delivery O2 Flow Rate FiO2 01/29/20 07:30 98.0 55 16 112/67 (82) 98 Room Air 98.0 Physical Exam PHYSICAL EXAM CONSTITUTIONAL: She is lying in bed. She appears cooperative. She appears comfortable. She is in no acute distress. HEENT: Pupils are equal and reactive. She has normal conjunctivae. Oral cavity, pharynx was clear. NECK: Supple. Good range of motion. LUNGS: Clear to auscultation bilaterally. HEART: S1, S2. ABDOMEN: Flat, nondistended. Some mild tenderness. There is no guarding or rebound. EXTREMITIES: Without clubbing or cyanosis. No gross edema. SKIN: Without generalized rash and is warm to touch. NEUROLOGIC: She is nonfocal. PSYCHIATRIC: Affect is appropriate. Labs Lab Laboratory Tests Test 01/29/20 04:17 White Blood Count 2.6 x10^3/uL (4.0-11.0) Red Blood Count 3.59 x10^6/uL (3.50-5.40) Hemoglobin 10.8 g/dL (12.0-15.5) Hematocrit 31.5 % (36.0-47.0) Mean Corpuscular Volume 88 fL (79-100) Mean Corpuscular Hemoglobin 30 pg (25-35) Mean Corpuscular Hemoglobin Concent 34 g/dL (31-37) Red Cell Distribution Width 13.3 % (11.5-14.5) Platelet Count 131 x10^3/uL (140-400) Neutrophils (%) (Auto) 59 % (31-73) Lymphocytes (%) (Auto) 30 % (24-48) Monocytes (%) (Auto) 10 % (0-9) Eosinophils (%) (Auto) 1 % (0-3) Basophils (%) (Auto) 0 % (0-3) Neutrophils # (Auto) 1.6 x10^3/uL (1.8-7.7) Lymphocytes # (Auto) 0.8 x10^3/uL (1.0-4.8) Monocytes # (Auto) 0.3 x10^3/uL (0.0-1.1) Eosinophils # (Auto) 0.0 x10^3/uL (0.0-0.7) Basophils # (Auto) 0.0 x10^3/uL (0.0-0.2) Sodium Level 141 mmol/L (136-145) Potassium Level 3.4 mmol/L (3.5-5.1) Chloride Level 108 mmol/L (98-107) Carbon Dioxide Level 25 mmol/L (21-32) Anion Gap 8 (6-14) Blood Urea Nitrogen 5 mg/dL (7-20) Creatinine 0.6 mg/dL (0.6-1.0) Estimated GFR (Cockcroft-Gault) 104.6 BUN/Creatinine Ratio 8 (6-20) Glucose Level 142 mg/dL (70-99) Calcium Level 8.2 mg/dL (8.5-10.1) Total Bilirubin 0.3 mg/dL (0.2-1.0) Aspartate Amino Transf (AST/SGOT) 21 U/L (15-37) Alanine Aminotransferase (ALT/SGPT) 17 U/L (14-59) Alkaline Phosphatase 62 U/L (46-116) Total Protein 5.1 g/dL (6.4-8.2) Albumin 2.3 g/dL (3.4-5.0) Albumin/Globulin Ratio 0.8 (1.0-1.7) Micro Abnormal CT - moderate inflammatory fat stranding in RLQ surrounding a few dis tended SB loops with thickened appearance of wall of ascending colon Objective Assessment Fever - better Leukopenia - slight better Diarrhea - Campylobcter + 01/27 Colitis COVID neg Plan Plan of Care Discont Cipro/Flagyl Dose IV Azithomycin with + vomit earlier F/u labs and cults FARHEEN ANDERSON MD Jan 29, 2020 10:50
[2020-01-29] MEDS ORDERED: AZITHRMYCN 500MG IVPB FOR OMNI 250 ML IV ONE (11:15)
--- NOTE | 2020-01-29 11:21 | PDOC2 ---
CONSULT Date of Consult Date of Consult DATE: 01/29/20 TIME: 11:13 Reason for Consult Reason for Consult: Leukopenia Referring Physician Referring Physician: Dr. Hernandez Identification/Chief Complaint Chief Complaint Diarrhea Source Source: Chart review, Patient History of Present Illness Reason for Visit: Patient is a 54-year-old female without any prior medical history who initially presented to [facility] [place] with fever and diarrhea. Patient reports noticing sudden onset diarrhea that started 4 days ago. She notes the diarrhea has not improved since then. She notes associated fever with temperature of 104. She recently returned after a trip to [place]. She denies any recent use of antibiotics. Orts having adopted a puppy recently. She also works on a farm. She has been admitted to the hospital and has been receiving further supportive care for gastroenteritis, presumed infectious. She has been seen by GI service. Stool testing has been requested and has returned positive for Campylobacter jejuni. She is also received a CT of the abdomen and pelvis which showed inflammatory fat stranding in the right lower quadrant suggestive of an infectious colitis her lab testing is also showing leukopenia with a white cell count of 2.5. She reports having had blood test in the past but has not been told about leukopenia during prior investigations. Hematology consultation has been sought for further evaluation and management of leukopenia Past Medical History Cardiovascular: No pertinent hx Pulmonary: No pertinent hx GI: No pertinent hx Hepatobiliary: No pertinent hx Infectious disease: No pertinent hx Renal/: No pertinent hx Family History Family History: Hypertension Social History No ALCOHOL: occassional Drugs: None Current Medications Current Medications Current Medications Ciprofloxacin/ Dextrose 200 ml @ 200 mls/hr Q12HR IV Last administered on 01/29/20at 09:07; Start 01/27/20 at 21:00 Metronidazole 100 ml @ 100 mls/hr Q8HRS IV Last administered on 01/29/20at 05:16; Start 01/27/20 at 15:30 Sodium Chloride (Normal Saline Flush) 3 ml QSHIFT PRN IV AFTER MEDS AND BLOOD DRAWS; Start 01/27/20 at 14:30 Sodium Chloride 1,000 ml @ 150 mls/hr Q6H40M IV Last administered on 01/29/20at 09:07; Start 01/27/20 at 14:27 Ondansetron HCl (Zofran) 4 mg PRN Q4HRS PRN IV NAUSEA/VOMITING Last administered on 01/29/20at 09:34; Start 01/27/20 at 14:30 Acetaminophen (Tylenol) 650 mg PRN Q4HRS PRN PO TEMP OVER 100.4F OR MILD PAIN Last administered on 01/29/20at 09:34; Start 01/27/20 at 14:30 Al Hydroxide/Mg Hydroxide (Mylanta Plus Xs) 30 ml PRN DAILY PRN PO HEARTBURN / GAS; Start 01/27/20 at 14:30 Clonidine HCl (Catapres) 0.1 mg PRN Q6HRS PRN PO SBP>160 OR DBP>90; Start 01/27/20 at 14:30 Albuterol Sulfate (Ventolin Neb Soln) 2.5 mg PRN Q4HRS PRN NEB SHORTNESS OF BREATH; Start 01/27/20 at 14:30 Guaifenesin (Robitussin) 200 mg PRN Q4HRS PRN PO COUGH; Start 01/27/20 at 14:30 Lorazepam (Ativan) 0.5 mg PRN Q4HRS PRN PO ANXIETY / AGITATION Last administered on 01/28/20at 20:51; Start 01/27/20 at 14:30 Enoxaparin Sodium (Lovenox 40mg Syringe) 40 mg Q24H SQ Last administered on 01/28/20at 17:41; Start 01/27/20 at 16:00 Active Scripts Active Reported No Known Medications Prior To Admisstion (Info) Each 1 Each MC 1X Allergies Allergies: Coded Allergies: No Known Drug Allergies (Unverified , 01/27/20) ROS General: YES: Chills; No: Night Sweats PSYCHOLOGICAL ROS: No: Anxiety, Behavioral Disorder Eyes: No Blurry vision, No Decreased vision HEENT: No: Heacaches, Visual Changes ALLERGY AND IMMUNOLOGY: No: Nasal Congestion, Post Nasal Drip Hematological and Lymphatic: No: Brusing, Night Sweats ENDOCRINE: YES: Malaise/lethargy; No: Palpitations Breast: No New/Changing Breast Lumps Respiratory: No: Cough, Hemoptysis Cardiovascular: No Chest Pain, No Palpitations Gastrointestinal: Yes Nausea, Yes Vomiting, Yes Abdominal Pain, Yes Diarrhea; No Melena Genitourinary: No Dysuria, No Flank Pain Musculoskeletal: No Gait Disturbance, No Joint Pain Neurological: No Behavorial Changes, No Bowel/Bladder ControlChng Skin: No Dry Skin, No Eczema Physical Exam General: Alert, Oriented X3 HEENT: Atraumatic Lungs: Clear to auscultation Heart: Regular rate Abdomen: Normal bowel sounds, Soft Extremities: No clubbing Skin: No rashes Neuro: Normal gait, Normal speech MUSCULOSKELETAL: No swelling Vitals VITALS Vital Signs Date Time Temp Pulse Resp B/P (MAP) Pulse Ox O2 Delivery O2 Flow Rate FiO2 01/29/20 07:30 98.0 55 16 112/67 (82) 98 Room Air 98.0 Labs Labs Laboratory Tests Test 01/27/20 15:40 01/28/20 09:45 01/29/20 04:17 White Blood Count 2.4 x10^3/uL (4.0-11.0) 2.6 x10^3/uL (4.0-11.0) Red Blood Count 4.47 x10^6/uL (3.50-5.40) 3.59 x10^6/uL (3.50-5.40) Hemoglobin 13.5 g/dL (12.0-15.5) 10.8 g/dL (12.0-15.5) Hematocrit 39.8 % (36.0-47.0) 31.5 % (36.0-47.0) Mean Corpuscular Volume 89 fL (79-100) 88 fL (79-100) Mean Corpuscular Hemoglobin 30 pg (25-35) 30 pg (25-35) Mean Corpuscular Hemoglobin Concent 34 g/dL (31-37) 34 g/dL (31-37) Red Cell Distribution Width 13.2 % (11.5-14.5) 13.3 % (11.5-14.5) Platelet Count 148 x10^3/uL (140-400) 131 x10^3/uL (140-400) Neutrophils (%) (Auto) 73 % (31-73) 59 % (31-73) Lymphocytes (%) (Auto) 14 % (24-48) 30 % (24-48) Monocytes (%) (Auto) 13 % (0-9) 10 % (0-9) Eosinophils (%) (Auto) 0 % (0-3) 1 % (0-3) Basophils (%) (Auto) 0 % (0-3) 0 % (0-3) Neutrophils # (Auto) 1.7 x10^3/uL (1.8-7.7) 1.6 x10^3/uL (1.8-7.7) Lymphocytes # (Auto) 0.3 x10^3/uL (1.0-4.8) 0.8 x10^3/uL (1.0-4.8) Monocytes # (Auto) 0.3 x10^3/uL (0.0-1.1) 0.3 x10^3/uL (0.0-1.1) Eosinophils # (Auto) 0.0 x10^3/uL (0.0-0.7) 0.0 x10^3/uL (0.0-0.7) Basophils # (Auto) 0.0 x10^3/uL (0.0-0.2) 0.0 x10^3/uL (0.0-0.2) Sodium Level 136 mmol/L (136-145) 141 mmol/L (136-145) Potassium Level 3.7 mmol/L (3.5-5.1) 3.4 mmol/L (3.5-5.1) Chloride Level 105 mmol/L (98-107) 108 mmol/L (98-107) Carbon Dioxide Level 23 mmol/L (21-32) 25 mmol/L (21-32) Anion Gap 8 (6-14) 8 (6-14) Blood Urea Nitrogen 6 mg/dL (7-20) 5 mg/dL (7-20) Creatinine 0.8 mg/dL (0.6-1.0) 0.6 mg/dL (0.6-1.0) Estimated GFR (Cockcroft-Gault) 75.0 104.6 BUN/Creatinine Ratio 8 (6-20) 8 (6-20) Glucose Level 181 mg/dL (70-99) 142 mg/dL (70-99) Calcium Level 8.2 mg/dL (8.5-10.1) 8.2 mg/dL (8.5-10.1) Ferritin 840 ng/mL (8-252) Total Bilirubin 1.0 mg/dL (0.2-1.0) 0.3 mg/dL (0.2-1.0) Aspartate Amino Transf (AST/SGOT) 29 U/L (15-37) 21 U/L (15-37) Alanine Aminotransferase (ALT/SGPT) 22 U/L (14-59) 17 U/L (14-59) Alkaline Phosphatase 71 U/L (46-116) 62 U/L (46-116) C-Reactive Protein, Quantitative 232.7 mg/L (0-3.3) Total Protein 6.2 g/dL (6.4-8.2) 5.1 g/dL (6.4-8.2) Albumin 2.7 g/dL (3.4-5.0) 2.3 g/dL (3.4-5.0) Albumin/Globulin Ratio 0.8 (1.0-1.7) 0.8 (1.0-1.7) Stool Campylobacter PCR Positive (NEGATIVE) Stool E. coli Shiga Toxins (PCR) Negative (NEGATIVE) Stool Salmonella PCR Negative (NEGATIVE) Stool Shigella PCR Negative (NEGATIVE) Clostridium difficile Toxin (PCR) Negative (NEGATIVE) Laboratory Tests Test 01/29/20 04:17 White Blood Count 2.6 x10^3/uL (4.0-11.0) Red Blood Count 3.59 x10^6/uL (3.50-5.40) Hemoglobin 10.8 g/dL (12.0-15.5) Hematocrit 31.5 % (36.0-47.0) Mean Corpuscular Volume 88 fL (79-100) Mean Corpuscular Hemoglobin 30 pg (25-35) Mean Corpuscular Hemoglobin Concent 34 g/dL (31-37) Red Cell Distribution Width 13.3 % (11.5-14.5) Platelet Count 131 x10^3/uL (140-400) Neutrophils (%) (Auto) 59 % (31-73) Lymphocytes (%) (Auto) 30 % (24-48) Monocytes (%) (Auto) 10 % (0-9) Eosinophils (%) (Auto) 1 % (0-3) Basophils (%) (Auto) 0 % (0-3) Neutrophils # (Auto) 1.6 x10^3/uL (1.8-7.7) Lymphocytes # (Auto) 0.8 x10^3/uL (1.0-4.8) Monocytes # (Auto) 0.3 x10^3/uL (0.0-1.1) Eosinophils # (Auto) 0.0 x10^3/uL (0.0-0.7) Basophils # (Auto) 0.0 x10^3/uL (0.0-0.2) Sodium Level 141 mmol/L (136-145) Potassium Level 3.4 mmol/L (3.5-5.1) Chloride Level 108 mmol/L (98-107) Carbon Dioxide Level 25 mmol/L (21-32) Anion Gap 8 (6-14) Blood Urea Nitrogen 5 mg/dL (7-20) Creatinine 0.6 mg/dL (0.6-1.0) Estimated GFR (Cockcroft-Gault) 104.6 BUN/Creatinine Ratio 8 (6-20) Glucose Level 142 mg/dL (70-99) Calcium Level 8.2 mg/dL (8.5-10.1) Total Bilirubin 0.3 mg/dL (0.2-1.0) Aspartate Amino Transf (AST/SGOT) 21 U/L (15-37) Alanine Aminotransferase (ALT/SGPT) 17 U/L (14-59) Alkaline Phosphatase 62 U/L (46-116) Total Protein 5.1 g/dL (6.4-8.2) Albumin 2.3 g/dL (3.4-5.0) Albumin/Globulin Ratio 0.8 (1.0-1.7) Assessment/Plan Assessment/Plan Assessment: Acute gastroenteritis, bacterial secondary to Campylobacter Fever, secondary to gastroenteritis Leukopenia, likely acute secondary to her acute infection Recommendations: -Continue with antimicrobial therapy as per GI. Given positive test for Campylobacter, I recommend considering switching antibiotics to azithromycin given known prevalence of fluoroquinolone resistance and Campylobacter. -We will check B12 level to determine if she has B12 deficiency -I would not recommend any additional work-up for her leukopenia at this time. She was instructed to follow-up with her primary care provider to receive a repeat CBC in 1 month after resolution of her acute illness. -Other management per primary hospitalist physician Wellington Dawkins MD Medical Oncology/Hematology Ph: [phone] JR DAWKINS MD Jan 29, 2020 11:21
[2020-01-29] MEDS ORDERED: AZITHROMYCIN 500 MG in IV NORMAL SALINE 250ML 250 ML IV ONE (11:30)
[2020-01-29 11:35] VITALS: BP 105/59
[2020-01-29 15:00] VITALS: BP 107/53
[2020-01-29] MEDS ORDERED: ELECTROLYTE (NON-ICU) PROTOCOL MC PRN (15:00)
[2020-01-29] MEDS ORDERED: POTASSIUM BICARB 20 MEQ EFFERVESCENT TABLET. PO SCH (15:00)
[2020-01-29] MEDS ORDERED: MAGNESIUM SULFATE 2GM 50 ML IV SCH (15:00)
[2020-01-29] MEDS ORDERED: POTASSIUM BICARB 20 MEQ EFFERVESCENT TABLET. FT ONE (15:00)
[2020-01-29] MEDS ORDERED: POTASSIUM CHLORIDE 10MEQ 100 ML IV SCH ×2 (15:00)
[2020-01-29] MEDS ORDERED: POTASSIUM CHLORIDE 20 MEQ TABLET.ER. PO ONE (15:15)
[2020-01-29] MEDS: ENOXAPARIN 40 MG/0.4 ML SYRINGE. SQ SCH ×2 (16:00→16:24)
--- NOTE | 2020-01-29 17:04 | NUR ---
SW following. Spoke with RN and reviewed chart. Pt from home, GI soft diet, COVID pending. Pt on room air. Pt negative for CDIFF. ID consulted and cultures are pending. SW to follow as needed but there are no anticipated SW needs at discharge.
[2020-01-29 19:20] VITALS: BP 128/68
[2020-01-29] MEDS ORDERED: POTASSIUM & SODIUM PHOSPHATES PACKET. PO SCH (21:00)
[2020-01-29] MEDS ORDERED: MAGNESIUM OXIDE 400 MG TABLET PO SCH (21:00)
[2020-01-29] MEDS: LORazepam 0.5 MG TABLET PO PRN (21:37)
[2020-01-29 22:57] VITALS: BP 113/56
[2020-01-30] MEDS: IV NORMAL SALINE 1000ML BAG 1,000 ML IV SCH ×4 (02:27→22:27)
[2020-01-30 03:30] VITALS: BP 128/75
[2020-01-30 04:21] LABS: BASO % 0 % (0-3); EOS % 1 % (0-3); HEMATOCRIT 31.8 % (36.0-47.0); HEMOGLOBIN 10.9 g/dL (12.0-15.5); LYMPH # 1.1 x10^3/uL (1.0-4.8); LYMPH % 31 % (24-48); MEAN CORPUSCULAR HEMOGLOBIN 30 pg (25-35); MEAN CORPUSCULAR HGB CONC 34 g/dL (31-37); MEAN CORPUSCULAR VOLUME 88 fL (79-100); MONO # 0.3 x10^3/uL (0.0-1.1); MONO % 9 % (0-9); NEUT # 2.1 x10^3/uL (1.8-7.7); NEUT % 59 % (31-73); PLATELET COUNT 161 x10^3/uL (140-400); RED BLOOD COUNT 3.63 x10^6/uL (3.50-5.40); RED CELL DISTRIBUTION WIDTH 13.3 % (11.5-14.5); WHITE BLOOD COUNT 3.6 x10^3/uL (4.0-11.0)
[2020-01-30] MEDS: ACETAMINOPHEN 325 MG TABLET. PO PRN ×3 (05:58→21:22)
[2020-01-30 07:30] VITALS: BP 133/65
[2020-01-30 08:23] LABS: CALCIUM 8.2 mg/dL (8.5-10.1); CREATININE 0.6 mg/dL (0.6-1.0); GFR 104.6; PHOSPHORUS 3.4 mg/dL (2.6-4.7); POTASSIUM 3.3 mmol/L (3.5-5.1)
--- NOTE | 2020-01-30 10:25 | PDOC ---
Infectious Disease Note Subjective Subjective Still not back to baseline Mild CAVANAUGH in left temporal and post neck area Vaomited last pm Ate some eggs this am Fever better. No diarrhea No weakness or numbness in legs/feet ROS ROS o/w neg Vital Sign Vital Signs Vital Signs Date Time Temp Pulse Resp B/P (MAP) Pulse Ox O2 Delivery O2 Flow Rate FiO2 01/30/20 07:30 98.2 53 18 133/65 (87) 98 Room Air 98.2 Physical Exam PHYSICAL EXAM CONSTITUTIONAL: She is lying in bed but sat up. She appears cooperative. She appears comfortable. She is in no acute distress. HEENT: Pupils are equal and reactive. She has normal conjunctivae. Oral cavity, pharynx was clear. NECK: Supple. Good range of motion. LUNGS: Clear to auscultation bilaterally. HEART: S1, S2. ABDOMEN: Flat, nondistended. Some mild tenderness. There is no guarding or rebound. EXTREMITIES: Without clubbing or cyanosis. No gross edema. SKIN: Without generalized rash and is warm to touch. NEUROLOGIC: She is nonfocal. PSYCHIATRIC: Affect is appropriate. Labs Lab Laboratory Tests Test 01/30/20 04:00 White Blood Count 3.6 x10^3/uL (4.0-11.0) Red Blood Count 3.63 x10^6/uL (3.50-5.40) Hemoglobin 10.9 g/dL (12.0-15.5) Hematocrit 31.8 % (36.0-47.0) Mean Corpuscular Volume 88 fL (79-100) Mean Corpuscular Hemoglobin 30 pg (25-35) Mean Corpuscular Hemoglobin Concent 34 g/dL (31-37) Red Cell Distribution Width 13.3 % (11.5-14.5) Platelet Count 161 x10^3/uL (140-400) Neutrophils (%) (Auto) 59 % (31-73) Lymphocytes (%) (Auto) 31 % (24-48) Monocytes (%) (Auto) 9 % (0-9) Eosinophils (%) (Auto) 1 % (0-3) Basophils (%) (Auto) 0 % (0-3) Neutrophils # (Auto) 2.1 x10^3/uL (1.8-7.7) Lymphocytes # (Auto) 1.1 x10^3/uL (1.0-4.8) Monocytes # (Auto) 0.3 x10^3/uL (0.0-1.1) Eosinophils # (Auto) 0.0 x10^3/uL (0.0-0.7) Basophils # (Auto) 0.0 x10^3/uL (0.0-0.2) Sodium Level 140 mmol/L (136-145) Potassium Level 3.3 mmol/L (3.5-5.1) Chloride Level 107 mmol/L (98-107) Carbon Dioxide Level 25 mmol/L (21-32) Anion Gap 8 (6-14) Blood Urea Nitrogen 3 mg/dL (7-20) Creatinine 0.6 mg/dL (0.6-1.0) Estimated GFR (Cockcroft-Gault) 104.6 Glucose Level 136 mg/dL (70-99) Calcium Level 8.2 mg/dL (8.5-10.1) Phosphorus Level 3.4 mg/dL (2.6-4.7) Micro Abnormal CT - moderate inflammatory fat stranding in RLQ surrounding a few distended SB loops with thickened appearance of wall of ascending colon Objective Assessment Fever - better Leukopenia - better Diarrhea - Campylobcter + 01/27 Colitis COVID neg Plan Plan of Care Discont Cipro/Flagyl 01/28 Redose IV Azithomycin with + vomit last pm IVF ordered F/u labs and cults D/w nursing and FARHEEN ANDERSON MD Jan 30, 2020 10:25
[2020-01-30] MEDS ORDERED: AZITHROMYCIN 500 MG in IV NORMAL SALINE 250ML 250 ML IV ONE (11:00)
[2020-01-30] MEDS ORDERED: AZITHRMYCN 500MG IVPB FOR OMNI 250 ML IV ONE (11:00)
[2020-01-30 11:15] VITALS: BP 100/61
--- NOTE | 2020-01-30 12:45 | PDOC ---
Date of Service: DATE: 01/30/20 TIME: 12:42 Subjective: Subjective: Feels better today. No vomiting - eating better. One stool today - "not that bad." Abd pain better. Has a headache but doesn't want to bother nurses to ask for Tylenol. Objective: Vital Signs: Vital Signs Date Time Temp Pulse Resp B/P (MAP) Pulse Ox O2 Delivery O2 Flow Rate FiO2 01/30/20 07:30 98.2 53 18 133/65 (87) 98 Room Air 98.2 Labs: Laboratory Tests Test 01/30/20 04:00 White Blood Count 3.6 x10^3/uL Red Blood Count 3.63 x10^6/uL Hemoglobin 10.9 g/dL Hematocrit 31.8 % Mean Corpuscular Volume 88 fL Mean Corpuscular Hemoglobin 30 pg Mean Corpuscular Hemoglobin Concent 34 g/dL Red Cell Distribution Width 13.3 % Platelet Count 161 x10^3/uL Neutrophils (%) (Auto) 59 % Lymphocytes (%) (Auto) 31 % Monocytes (%) (Auto) 9 % Eosinophils (%) (Auto) 1 % Basophils (%) (Auto) 0 % Neutrophils # (Auto) 2.1 x10^3/uL Lymphocytes # (Auto) 1.1 x10^3/uL Monocytes # (Auto) 0.3 x10^3/uL Eosinophils # (Auto) 0.0 x10^3/uL Basophils # (Auto) 0.0 x10^3/uL Sodium Level 140 mmol/L Potassium Level 3.3 mmol/L Chloride Level 107 mmol/L Carbon Dioxide Level 25 mmol/L Anion Gap 8 Blood Urea Nitrogen 3 mg/dL Creatinine 0.6 mg/dL Estimated GFR (Cockcroft-Gault) 104.6 Glucose Level 136 mg/dL Calcium Level 8.2 mg/dL Phosphorus Level 3.4 mg/dL Vitamin B12 Level 1130 pg/mL BLOOD CULTURE Preliminary NO GROWTH AFTER 2 DAYS PE: GEN: NAD LUNGS: CTAB HEART: RRR ABD: NABS, S/ND/NT NEURO/PSYCH: A & O 3 A/P: +campylobacter Diarrhea, vomiting, abd pain - better Leukopenia, thrombocytopenia - better Headache -- Dc per ID/primary. Follow-up for outpt screening colonoscopy. Justicifation of Admission Dx: Justifications for Admission: Justification of Admission Dx: Yes YANIRA ZHU Jan 30, 2020 12:45
[2020-01-30] MEDS: ONDANSETRON PF 4 MG/2 ML VIAL. IV PRN (13:02)
[2020-01-30 15:00] VITALS: BP 142/68
[2020-01-30] MEDS: ENOXAPARIN 40 MG/0.4 ML SYRINGE. SQ SCH (16:00)
--- NOTE | 2020-01-30 17:20 | NUR ---
SW following. Spoke with RN and reviewed chart. Pt from home and will likely discharge home over the weekend self-care. No needs identified.
[2020-01-30 19:00] VITALS: BP 129/65
[2020-01-30] MEDS: LORazepam 0.5 MG TABLET PO PRN (21:22)
[2020-01-30 23:00] VITALS: BP 136/79
[2020-01-31 03:00] VITALS: BP 99/58
[2020-01-31] MEDS: IV NORMAL SALINE 1000ML BAG 1,000 ML IV SCH ×2 (05:07→11:47)
[2020-01-31 07:00] VITALS: BP 157/73
--- NOTE | 2020-01-31 07:36 | PDOC ---
Infectious Disease Note Subjective Subjective Better. Wanting to go home No F/c/s/N/V/D/SOA/rash Appetite some better No weakness or numbness in legs/feet ROS ROS o/w neg Vital Sign Vital Signs Vital Signs Date Time Temp Pulse Resp B/P (MAP) Pulse Ox O2 Delivery O2 Flow Rate FiO2 01/31/20 03:00 98.0 50 18 99/58 (72) 96 Room Air 98.0 Physical Exam PHYSICAL EXAM CONSTITUTIONAL: She sat up. She appears cooperative. She appears comfortable. She is in no acute distress. HEENT: Pupils are equal and reactive. She has normal conjunctivae. Oral cavity, pharynx was clear. NECK: Supple. Good range of motion. LUNGS: Clear to auscultation bilaterally. HEART: S1, S2. ABDOMEN: Flat, nondistended. Some mild tenderness. There is no guarding or rebound. EXTREMITIES: Without clubbing or cyanosis. No gross edema. SKIN: Without generalized rash and is warm to touch. NEUROLOGIC: She is nonfocal. PSYCHIATRIC: Affect is appropriate. Labs Micro Abnormal CT - moderate inflammatory fat stranding in RLQ surrounding a few distended SB loops with thickened appearance of wall of ascending colon Objective Assessment Fever - better Leukopenia - better Diarrhea - Campylobcter + 01/27 Colitis COVID neg Plan Plan of Care Dose Po Azithromycin 500 mg this am and can d/c home with 2 additional doses to start 01/31 and finish 02/01 will compete 7 days of therapy given previous Cipro Can F/u with GI or primary D/w nursing FARHEEN ANDERSON MD Jan 31, 2020 07:36
[2020-01-31] MEDS ORDERED: AZITHROMYCIN 250 MG TABLET. PO ONE (07:45)
--- NOTE | 2020-01-31 09:50 | PDOC ---
PROGRESS NOTES Date of Service: DATE: 01/30/20 TIME: 09:48 Chief Complaint Chief Complaint VTE Prophylaxis Ordered LATE ENTRY 01/29 VTE Prophylaxis Devices: Yes VTE Pharmacological Prophylaxi: Yes Assessment/Plan IMPRESSION 1. acute colitis, with terminal ilitis, suspect acute INFLAMMATORY BOWEL DISEASE 2, FEVER 3. ABDOMINAL PAIN WITH DIARRHEA 4. Generalized weakness 5. volume depletion with dehydration 6. LEUKOPENIA 7. SEVERE PROTEIN-CALORIC MALNUTRITION 8. HYPOKALEMIA crp 232 01/27 01/29 NO FEVER TODAY, second covid NEG D/W RN AND IN ROOM REPLACE K plan admit consult GI BLOOD CULTURES STOOL FOR ENTERIC PATHOGENS CLEAR LIQUIDS IV FLUID SUPPORT COVID 19 SCREENING NEG ID CONSULT NOTED ferritin crp ESR iv cipro, flagyl heme consult D/W RN is dpoa 27 min pt exam, chart review, > 50% of time spent with exam, chart review, pt care coordination History of Present Illness History of Present Illness Identification/Chief Complaint Chief Complaint SEEN IN ER [facility] with nausea, explosive diarrhea and fever x 3 days, no cough NO soa, covid 19 pending from 48 hrs ago, TEMP 104 DEG 01/25 VOLUME DEPLETED WITH HYPOTENSION , Denies known Covid contact, started on iv cipro, flagyl in ER, Noted to have neutropenia on cbc, ketonuria, c diff ordered 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 She appears cooperative. She appears comfortable. She is in no acute distress. HEENT: Pupils are equal and reactive. She has normal conjunctivae. Oral cavity, pharynx was clear. NECK: Supple. Good range of motion. LUNGS: Clear to auscultation bilaterally. HEART: S1, S2. ABDOMEN: Flat, nondistended. Some mild tenderness. There is no guarding or rebound. EXTREMITIES: Without clubbing or cyanosis. No gross edema. SKIN: Without generalized rash and is warm to touch. NEUROLOGIC: She is nonfocal. PSYCHIATRIC: Affect is appropriate. General: Alert, Oriented X3 Heart: Regular rate Lungs: Clear Abdomen: Normal bowel sounds, Soft Extremities: No clubbing Skin: No rashes Comment Review of Relevant I have reviewed the following items wiliam (where applicable) has been applied. Labs Laboratory Tests Test 01/30/20 04:00 White Blood Count 3.6 x10^3/uL (4.0-11.0) Red Blood Count 3.63 x10^6/uL (3.50-5.40) Hemoglobin 10.9 g/dL (12.0-15.5) Hematocrit 31.8 % (36.0-47.0) Mean Corpuscular Volume 88 fL (79-100) Mean Corpuscular Hemoglobin 30 pg (25-35) Mean Corpuscular Hemoglobin Concent 34 g/dL (31-37) Red Cell Distribution Width 13.3 % (11.5-14.5) Platelet Count 161 x10^3/uL (140-400) Neutrophils (%) (Auto) 59 % (31-73) Lymphocytes (%) (Auto) 31 % (24-48) Monocytes (%) (Auto) 9 % (0-9) Eosinophils (%) (Auto) 1 % (0-3) Basophils (%) (Auto) 0 % (0-3) Neutrophils # (Auto) 2.1 x10^3/uL (1.8-7.7) Lymphocytes # (Auto) 1.1 x10^3/uL (1.0-4.8) Monocytes # (Auto) 0.3 x10^3/uL (0.0-1.1) Eosinophils # (Auto) 0.0 x10^3/uL (0.0-0.7) Basophils # (Auto) 0.0 x10^3/uL (0.0-0.2) Sodium Level 140 mmol/L (136-145) Potassium Level 3.3 mmol/L (3.5-5.1) Chloride Level 107 mmol/L (98-107) Carbon Dioxide Level 25 mmol/L (21-32) Anion Gap 8 (6-14) Blood Urea Nitrogen 3 mg/dL (7-20) Creatinine 0.6 mg/dL (0.6-1.0) Estimated GFR (Cockcroft-Gault) 104.6 Glucose Level 136 mg/dL (70-99) Calcium Level 8.2 mg/dL (8.5-10.1) Phosphorus Level 3.4 mg/dL (2.6-4.7) Vitamin B12 Level 1130 pg/mL (247-911) Microbiology 01/27/20 Blood Culture - Preliminary, Resulted NO GROWTH AFTER 3 DAYS Medications Current Medications Ciprofloxacin/ Dextrose 200 ml @ 200 mls/hr Q12HR IV Last administered on 01/29/20at 09:07; Start 01/27/20 at 21:00; Stop 01/29/20 at 11:14; Status DC Metronidazole 100 ml @ 100 mls/hr Q8HRS IV Last administered on 01/29/20at 05:16; Start 01/27/20 at 15:30; Stop 01/29/20 at 11:14; Status DC Sodium Chloride (Normal Saline Flush) 3 ml QSHIFT PRN IV AFTER MEDS AND BLOOD DRAWS; Start 01/27/20 at 14:30 Sodium Chloride 1,000 ml @ 150 mls/hr Q6H40M IV Last administered on 01/29/20at 16:25; Start 01/27/20 at 14:27 Ondansetron HCl (Zofran) 4 mg PRN Q4HRS PRN IV NAUSEA/VOMITING Last administered on 01/30/20at 13:02; Start 01/27/20 at 14:30 Acetaminophen (Tylenol) 650 mg PRN Q4HRS PRN PO TEMP OVER 100.4F OR MILD PAIN Last administered on 01/30/20at 21:22; Start 01/27/20 at 14:30 Al Hydroxide/Mg Hydroxide (Mylanta Plus Xs) 30 ml PRN DAILY PRN PO HEARTBURN / GAS; Start 01/27/20 at 14:30 Clonidine HCl (Catapres) 0.1 mg PRN Q6HRS PRN PO SBP>160 OR DBP>90; Start 01/27/20 at 14:30 Albuterol Sulfate (Ventolin Neb Soln) 2.5 mg PRN Q4HRS PRN NEB SHORTNESS OF BREATH; Start 01/27/20 at 14:30 Guaifenesin (Robitussin) 200 mg PRN Q4HRS PRN PO COUGH; Start 01/27/20 at 14:30 Lorazepam (Ativan) 0.5 mg PRN Q4HRS PRN PO ANXIETY / AGITATION Last administered on 01/30/20at 21:22; Start 01/27/20 at 14:30 Enoxaparin Sodium (Lovenox 40mg Syringe) 40 mg Q24H SQ Last administered on 01/28/20at 17:41; Start 01/27/20 at 16:00 Azithromycin 250 ml @ 250 mls/hr 1X ONCE IV ; Start 01/29/20 at 11:15; Stop 01/29/20 at 12:14; Status Cancel Azithromycin 500 mg/Sodium Chloride 250 ml @ 250 mls/hr 1X ONCE IV Last adm inistered on 01/29/20at 13:05; Start 01/29/20 at 11:30; Stop 01/29/20 at 12:29; Status DC Potassium Bicarbonate (Potassium Effervescent Tablet) 40 meq 1X ONCE FT ; Start 01/29/20 at 15:00; Stop 01/29/20 at 15:01; Status UNV Magnesium Oxide (Magnesium Oxide) 400 mg BID PO ; Start 01/29/20 at 21:00; Stop 01/31/20 at 09:01; Status UNV Potassium Chloride/Water 100 ml @ 100 mls/hr Q1H IV ; Start 01/29/20 at 15:00; Stop 01/29/20 at 18:59; Status UNV Magnesium Sulfate 50 ml @ 25 mls/hr Q24H IV ; Start 01/29/20 at 15:00; Stop 01/31/20 at 16:59; Status UNV Potassium Phos/ Sodium Phos (Phos-Nak) 1 pkt BID PO ; Start 01/29/20 at 21:00; Stop 01/30/20 at 09:01; Status UNV Potassium Bicarbonate (Potassium Effervescent Tablet) 40 meq Q4H PO ; Start 01/29/20 at 15:00; Stop 01/29/20 at 19:01; Status UNV Potassium Chloride/Water 100 ml @ 100 mls/hr Q1H IV ; Start 01/29/20 at 15:00; Stop 01/29/20 at 18:59; Status UNV Info (Non-Icu Electrolyte Protocol) 1 ea CONT PRN PRN MC SEE COMMENTS; Start 01/29/20 at 15:00 Potassium Chloride (Klor-Con) 40 meq 1X ONCE PO Last administered on 01/29/20at 16:25; Start 01/29/20 at 15:15; Stop 01/29/20 at 15:28; Status DC Azithromycin 250 ml @ 250 mls/hr 1X ONCE IV ; Start 01/30/20 at 11:00; Stop 01/30/20 at 11:59; Status UNV Azithromycin 500 mg/Sodium Chloride 250 ml @ 250 mls/hr 1X ONCE IV Last administered on 01/30/20at 11:00; Start 01/30/20 at 11:00; Stop 01/30/20 at 11:59; Status DC Azithromycin (Zithromax) 500 mg 1X ONCE PO Last administered on 01/31/20at 09:13; Start 01/31/20 at 07:45; Stop 01/31/20 at 07:46; Status DC Active Scripts Active Reported No Known Medications Prior To Admisstion (Info) Each 1 Each MC 1X Vitals/I & O Vital Sign - Last 24 Hours 01/30/20 01/30/20 01/30/20 01/30/20 11:15 15:00 19:00 23:00 Temp 98.6 98.3 98.1 98.1 98.6 98.3 98.1 98.1 Pulse 58 49 46 57 Resp 16 16 18 18 B/P (MAP) 100/61 (74) 142/68 (92) 129/65 (86) 136/79 (98) Pulse Ox 100 98 99 97 O2 Delivery Room Air Room Air Room Air Room Air 01/31/20 01/31/20 03:00 07:00 Temp 98.0 98.4 98.0 98.4 Pulse 50 55 Resp 18 16 B/P (MAP) 99/58 (72) 157/73 (101) Pulse Ox 96 96 O2 Delivery Room Air Room Air Intake and Output 01/30/20 01/30/20 01/31/20 15:00 23:00 07:00 Intake Total 50 ml 50 ml Balance 50 ml 50 ml Justicifation of Admission Dx: Justifications for Admission: Justification of Admission Dx: Yes SONIA NASH MD Jan 31, 2020 09:50
--- NOTE | 2020-01-31 09:53 | PDOC ---
PROGRESS NOTES Date of Service: DATE: 01/31/20 TIME: 09:52 Chief Complaint Chief Complaint VTE Prophylaxis Ordered VTE Prophylaxis Devices: Yes VTE Pharmacological Prophylaxi: Yes discharge dx IMPRESSION 1. acute colitis, with terminal ilitis, , ACUTE CAMPHYLOBACTER Colitis 2, FEVER 3. ABDOMINAL PAIN WITH DIARRHEA , improving 4. Generalized weakness 5. volume depletion with dehydration 6. LEUKOPENIA 7. SEVERE PROTEIN-CALORIC MALNUTRITION 8. HYPOKALEMIA , on replacement crp 232 01/27 01/30 NO FEVER TODAY, second covid NEG Po Azithromycin 500 mg this am and can d/c home with 2 additional doses to start 01/31 and finish 02/01 will compete 7 days of therapy given previous Cipro D/W RN REPLACE K d/c planning 32 min plan admit consult GI BLOOD CULTURES STOOL FOR ENTERIC PATHOGENS CLEAR LIQUIDS IV FLUID SUPPORT COVID 19 SCREENING NEG ID CONSULT NOTED ferritin crp ESR iv cipro, flagyl heme consult D/W RN is dpoa 27 min pt exam, chart review, > 50% of time spent with exam, chart review, pt care coordination History of Present Illness History of Present Illness Identification/Chief Complaint Chief Complaint SEEN IN ER [facility] with nausea, explosive diarrhea and fever x 3 days, no cough NO soa, covid 19 NEG from 48 hrs ago, TEMP 104 DEG 01/25 VOLUME DEPLETED WITH HYPOTENSION , Denies known Covid contact, started on iv cipro, flagyl in ER, Noted to have neutropenia on cbc, ketonuria, c diff ordered 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 She appears cooperative. She appears comfortable. She is in no acute distress. HEENT: Pupils are equal and reactive. She has normal conjunctivae. Oral cavity, pharynx was clear. NECK: Supple. Good range of motion. LUNGS: Clear to auscultation bilaterally. HEART: S1, S2. ABDOMEN: Flat, nondistended. Some mild tenderness. There is no guarding or rebound. EXTREMITIES: Without clubbing or cyanosis. No gross edema. SKIN: Without generalized rash and is warm to touch. NEUROLOGIC: She is nonfocal. PSYCHIATRIC: Affect is appropriate. General: Alert, Oriented X3, Cooperative, No acute distress Heart: Regular rate, Normal S1, Normal S2 Lungs: Clear Abdomen: Normal bowel sounds, Soft Extremities: No clubbing, No cyanosis Skin: No rashes Comment Review of Relevant I have reviewed the following items wiliam (where applicable) has been applied. Labs Laboratory Tests Test 01/30/20 04:00 White Blood Count 3.6 x10^3/uL (4.0-11.0) Red Blood Count 3.63 x10^6/uL (3.50-5.40) Hemoglobin 10.9 g/dL (12.0-15.5) Hematocrit 31.8 % (36.0-47.0) Mean Corpuscular Volume 88 fL (79-100) Mean Corpuscular Hemoglobin 30 pg (25-35) Mean Corpuscular Hemoglobin Concent 34 g/dL (31-37) Red Cell Distribution Width 13.3 % (11.5-14.5) Platelet Count 161 x10^3/uL (140-400) Neutrophils (%) (Auto) 59 % (31-73) Lymphocytes (%) (Auto) 31 % (24-48) Monocytes (%) (Auto) 9 % (0-9) Eosinophils (%) (Auto) 1 % (0-3) Basophils (%) (Auto) 0 % (0-3) Neutrophils # (Auto) 2.1 x10^3/uL (1.8-7.7) Lymphocytes # (Auto) 1.1 x10^3/uL (1.0-4.8) Monocytes # (Auto) 0.3 x10^3/uL (0.0-1.1) Eosinophils # (Auto) 0.0 x10^3/uL (0.0-0.7) Basophils # (Auto) 0.0 x10^3/uL (0.0-0.2) Sodium Level 140 mmol/L (136-145) Potassium Level 3.3 mmol/L (3.5-5.1) Chloride Level 107 mmol/L (98-107) Carbon Dioxide Level 25 mmol/L (21-32) Anion Gap 8 (6-14) Blood Urea Nitrogen 3 mg/dL (7-20) Creatinine 0.6 mg/dL (0.6-1.0) Estimated GFR (Cockcroft-Gault) 104.6 Glucose Level 136 mg/dL (70-99) Calcium Level 8.2 mg/dL (8.5-10.1) Phosphorus Level 3.4 mg/dL (2.6-4.7) Vitamin B12 Level 1130 pg/mL (247-911) Microbiology 01/29/20 Urine Culture - Final, Complete 01/27/20 Blood Culture - Preliminary, Resulted NO GROWTH AFTER 3 DAYS Medications Current Medications Ciprofloxacin/ Dextrose 200 ml @ 200 mls/hr Q12HR IV Last administered on 01/29/20at 09:07; Start 01/27/20 at 21:00; Stop 01/29/20 at 11:14; Status DC Metronidazole 100 ml @ 100 mls/hr Q8HRS IV Last administered on 01/29/20at 05:16; Start 01/27/20 at 15:30; Stop 01/29/20 at 11:14; Status DC Sodium Chloride (Normal Saline Flush) 3 ml QSHIFT PRN IV AFTER MEDS AND BLOOD DRAWS; Start 01/27/20 at 14:30 Sodium Chloride 1,000 ml @ 150 mls/hr Q6H40M IV Last administered on 01/29/20at 16:25; Start 01/27/20 at 14:27 Ondansetron HCl (Zofran) 4 mg PRN Q4HRS PRN IV NAUSEA/VOMITING Last administered on 01/30/20at 13:02; Start 01/27/20 at 14:30 Acetaminophen (Tylenol) 650 mg PRN Q4HRS PRN PO TEMP OVER 100.4F OR MILD PAIN Last administered on 01/30/20at 21:22; Start 01/27/20 at 14:30 Al Hydroxide/Mg Hydroxide (Mylanta Plus Xs) 30 ml PRN DAILY PRN PO HEARTBURN / GAS; Start 01/27/20 at 14:30 Clonidine HCl (Catapres) 0.1 mg PRN Q6HRS PRN PO SBP>160 OR DBP>90; Start 01/27/20 at 14:30 Albuterol Sulfate (Ventolin Neb Soln) 2.5 mg PRN Q4HRS PRN NEB SHORTNESS OF BREATH; Start 01/27/20 at 14:30 Guaifenesin (Robitussin) 200 mg PRN Q4HRS PRN PO COUGH; Start 01/27/20 at 14:30 Lorazepam (Ativan) 0.5 mg PRN Q4HRS PRN PO ANXIETY / AGITATION Last administered on 01/30/20at 21:22; Start 01/27/20 at 14:30 Enoxaparin Sodium (Lovenox 40mg Syringe) 40 mg Q24H SQ Last administered on 01/28/20at 17:41; Start 01/27/20 at 16:00 Azithromycin 250 ml @ 250 mls/hr 1X ONCE IV ; Start 01/29/20 at 11:15; Stop 01/29/20 at 12:14; Status Cancel Azithromycin 500 mg/Sodium Chloride 250 ml @ 250 mls/hr 1X ONCE IV Last administered on 01/29/20at 13:05; Start 01/29/20 at 11:30; Stop 01/29/20 at 12:29; Status DC Potassium Bicarbonate (Potassium Effervescent Tablet) 40 meq 1X ONCE FT ; Start 01/29/20 at 15:00; Stop 01/29/20 at 15:01; Status UNV Magnesium Oxide (Magnesium Oxide) 400 mg BID PO ; Start 01/29/20 at 21:00; Stop 01/31/20 at 09:01; Status UNV Potassium Chloride/Water 100 ml @ 100 mls/hr Q1H IV ; Start 01/29/20 at 15:00; Stop 01/29/20 at 18:59; Status UNV Magnesium Sulfate 50 ml @ 25 mls/hr Q24H IV ; Start 01/29/20 at 15:00; Stop 01/31/20 at 16:59; Status UNV Potassium Phos/ Sodium Phos (Phos-Nak) 1 pkt BID PO ; Start 01/29/20 at 21:00; Stop 01/30/20 at 09:01; Status UNV Potassium Bicarbonate (Potassium Effervescent Tablet) 40 meq Q4H PO ; Start 01/29/20 at 15:00; Stop 01/29/20 at 19:01; Status UNV Potassium Chloride/Water 100 ml @ 100 mls/hr Q1H IV ; Start 01/29/20 at 15:00; Stop 01/29/20 at 18:59; Status UNV Info (Non-Icu Electrolyte Protocol) 1 ea CONT PRN PRN MC SEE COMMENTS; Start 01/29/20 at 15:00 Potassium Chloride (Klor-Con) 40 meq 1X ONCE PO Last administered on 01/29/20at 16:25; Start 01/29/20 at 15:15; Stop 01/29/20 at 15:28; Status DC Azithromycin 250 ml @ 250 mls/hr 1X ONCE IV ; Start 01/30/20 at 11:00; Stop 01/30/20 at 11:59; Status UNV Azithromycin 500 mg/Sodium Chloride 250 ml @ 250 mls/hr 1X ONCE IV Last administered on 01/30/20at 11:00; Start 01/30/20 at 11:00; Stop 01/30/20 at 11:59; Status DC Azithromycin (Zithromax) 500 mg 1X ONCE PO Last administered on 01/31/20at 09:13; Start 01/31/20 at 07:45; Stop 01/31/20 at 07:46; Status DC Active Scripts Active Reported No Known Medications Prior To Admisstion (Info) Each 1 Each MC 1X Vitals/I & O Vital Sign - Last 24 Hours 01/30/20 01/30/20 01/30/20 01/30/20 11:15 15:00 19:00 23:00 Temp 98.6 98.3 98.1 98.1 98.6 98.3 98.1 98.1 Pulse 58 49 46 57 Resp 16 16 18 18 B/P (MAP) 100/61 (74) 142/68 (92) 129/65 (86) 136/79 (98) Pulse Ox 100 98 99 97 O2 Delivery Room Air Room Air Room Air Room Air 01/31/20 01/31/20 03:00 07:00 Temp 98.0 98.4 98.0 98.4 Pulse 50 55 Resp 18 16 B/P (MAP) 99/58 (72) 157/73 (101) Pulse Ox 96 96 O2 Delivery Room Air Room Air Intake and Output 01/30/20 01/30/20 01/31/20 15:00 23:00 07:00 Intake Total 50 ml 50 ml Balance 50 ml 50 ml Justicifation of Admission Dx: Justifications for Admission: Justification of Admission Dx: Yes SONIA NASH MD Jan 31, 2020 09:53
[2020-01-31 09:57] LABS: BASO % 0 % (0-3); EOS % 1 % (0-3); HEMATOCRIT 35.7 % (36.0-47.0); HEMOGLOBIN 12.2 g/dL (12.0-15.5); LYMPH # 0.8 x10^3/uL (1.0-4.8); LYMPH % 19 % (24-48); MEAN CORPUSCULAR HEMOGLOBIN 30 pg (25-35); MEAN CORPUSCULAR HGB CONC 34 g/dL (31-37); MEAN CORPUSCULAR VOLUME 88 fL (79-100); MONO # 0.3 x10^3/uL (0.0-1.1); MONO % 7 % (0-9); NEUT # 3.2 x10^3/uL (1.8-7.7); NEUT % 73 % (31-73); PLATELET COUNT 204 x10^3/uL (140-400); RED BLOOD COUNT 4.06 x10^6/uL (3.50-5.40); RED CELL DISTRIBUTION WIDTH 13.1 % (11.5-14.5); WHITE BLOOD COUNT 4.5 x10^3/uL (4.0-11.0)
[2020-01-31] MEDS ORDERED: POTASSIUM CHLORIDE 20 MEQ TABLET.ER. PO ONE (10:00)
[2020-01-31 10:09] LABS: CALCIUM 8.4 mg/dL (8.5-10.1); CREATININE 0.6 mg/dL (0.6-1.0); GFR 104.6; MAGNESIUM 1.9 mg/dL (1.8-2.4); POTASSIUM 3.3 mmol/L (3.5-5.1)
--- NOTE | 2020-01-31 10:58 | PDOC3 ---
Discharge Summary Date of Admission: Jan 27, 2020 Date of Discharge: Jan 31, 2020 Follow-Up: 3-5 days Admitting Diagnosis comment: discharge dx IMPRESSION 1. acute colitis, with terminal ilitis, , ACUTE CAMPHYLOBACTER Colitis 2, FEVER 3. ABDOMINAL PAIN WITH DIARRHEA , improving 4. Generalized weakness 5. volume depletion with dehydration 6. LEUKOPENIA 7. SEVERE PROTEIN-CALORIC MALNUTRITION 8. HYPOKALEMIA , on replacement crp 232 01/27 01/30 NO FEVER TODAY, second covid NEG Po Azithromycin 500 mg this am and can d/c home with 2 additional doses to start 01/31 and finish 02/01 will compete 7 days of therapy given previous Cipro D/W RN REPLACE K d/c planning 32 min plan admit consult GI BLOOD CULTURES STOOL FOR ENTERIC PATHOGENS CLEAR LIQUIDS IV FLUID SUPPORT COVID 19 SCREENING NEG ID CONSULT NOTED ferritin crp ESR iv cipro, flagyl heme consult D/W RN is dpoa to have colonoscopy with gi soon History of Present Illness History of Present Illness Identification/Chief Complaint Chief Complaint SEEN IN ER [facility] with nausea, explosive diarrhea and fever x 3 days, no cough NO soa, covid 19 NEG from 48 hrs ago, TEMP 104 DEG 01/25 VOLUME DEPLETED WITH HYPOTENSION , Denies known Covid contact, started on iv cipro, flagyl in ER, Noted to have neutropenia on cbc, ketonuria, c diff ordered 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 She appears cooperative. She appears comfortable. She is in no acute distress. HEENT: Pupils are equal and reactive. She has normal conjunctivae. Oral cavity, pharynx was clear. NECK: Supple. Good range of motion. LUNGS: Clear to auscultation bilaterally. HEART: S1, S2. ABDOMEN: Flat, nondistended. Some mild tenderness. There is no guarding or rebound. EXTREMITIES: Without clubbing or cyanosis. No gross edema. SKIN: Without generalized rash and is warm to touch. NEUROLOGIC: She is nonfocal. PSYCHIATRIC: Affect is appropriate. General: Alert, Oriented X3, Cooperative, No acute distress Heart: Regular rate, Normal S1, Normal S2 Lungs: Clear Abdomen: Normal bowel sounds, Soft Extremities: No clubbing, No cyanosis Skin: No rashes Brief Hospital Course Ms. Mason is a 54 old [sex] who presented with [ acute bacterial colitis ] CONDITION AT DISCHARGE: Improved Discharge Medications Current Medications Ciprofloxacin/ Dextrose 200 ml @ 200 mls/hr Q12HR IV Last administered on 01/29/20at 09:07; Start 01/27/20 at 21:00; Stop 01/29/20 at 11:14; Status DC Metronidazole 100 ml @ 100 mls/hr Q8HRS IV Last administered on 01/29/20at 05:16; Start 01/27/20 at 15:30; Stop 01/29/20 at 11:14; Status DC Sodium Chloride (Normal Saline Flush) 3 ml QSHIFT PRN IV AFTER MEDS AND BLOOD DRAWS; Start 01/27/20 at 14:30 Sodium Chloride 1,000 ml @ 150 mls/hr Q6H40M IV Last administered on 01/29/20at 16:25; Start 01/27/20 at 14:27 Ondansetron HCl (Zofran) 4 mg PRN Q4HRS PRN IV NAUSEA/VOMITING Last administered on 01/30/20at 13:02; Start 01/27/20 at 14:30 Acetaminophen (Tylenol) 650 mg PRN Q4HRS PRN PO TEMP OVER 100.4F OR MILD PAIN Last administered on 01/30/20at 21:22; Start 01/27/20 at 14:30 Al Hydroxide/Mg Hydroxide (Mylanta Plus Xs) 30 ml PRN DAILY PRN PO HEARTBURN / GAS; Start 01/27/20 at 14:30 Clonidine HCl (Catapres) 0.1 mg PRN Q6HRS PRN PO SBP>160 OR DBP>90; Start 01/27/20 at 14:30 Albuterol Sulfate (Ventolin Neb Soln) 2.5 mg PRN Q4HRS PRN NEB SHORTNESS OF BREATH; Start 01/27/20 at 14:30 Guaifenesin (Robitussin) 200 mg PRN Q4HRS PRN PO COUGH; Start 01/27/20 at 14:30 Lorazepam (Ativan) 0.5 mg PRN Q4HRS PRN PO ANXIETY / AGITATION Last administered on 01/30/20at 21:22; Start 01/27/20 at 14:30 Enoxaparin Sodium (Lovenox 40mg Syringe) 40 mg Q24H SQ Last administered on 01/28/20at 17:41; Start 01/27/20 at 16:00 Azithromycin 250 ml @ 250 mls/hr 1X ONCE IV ; Start 01/29/20 at 11:15; Stop 01/29/20 at 12:14; Status Cancel Azithromycin 500 mg/Sodium Chloride 250 ml @ 250 mls/hr 1X ONCE IV Last administered on 01/29/20at 13:05; Start 01/29/20 at 11:30; Stop 01/29/20 at 12:29; Status DC Potassium Bicarbonate (Potassium Effervescent Tablet) 40 meq 1X ONCE FT ; Start 01/29/20 at 15:00; Stop 01/29/20 at 15:01; Status UNV Magnesium Oxide (Magnesium Oxide) 400 mg BID PO ; Start 01/29/20 at 21:00; Stop 01/31/20 at 09:01; Status UNV Potassium Chloride/Water 100 ml @ 100 mls/hr Q1H IV ; Start 01/29/20 at 15:00; Stop 01/29/20 at 18:59; Status UNV Magnesium Sulfate 50 ml @ 25 mls/hr Q24H IV ; Start 01/29/20 at 15:00; Stop 01/31/20 at 16:59; Status UNV Potassium Phos/ Sodium Phos (Phos-Nak) 1 pkt BID PO ; Start 01/29/20 at 21:00; Stop 01/30/20 at 09:01; Status UNV Potassium Bicarbonate (Potassium Effervescent Tablet) 40 meq Q4H PO ; Start 01/29/20 at 15:00; Stop 01/29/20 at 19:01; Status UNV Potassium Chloride/Water 100 ml @ 100 mls/hr Q1H IV ; Start 01/29/20 at 15:00; Stop 01/29/20 at 18:59; Status UNV Info (Non-Icu Electrolyte Protocol) 1 ea CONT PRN PRN MC SEE COMMENTS; Start 01/29/20 at 15:00 Potassium Chloride (Klor-Con) 40 meq 1X ONCE PO Last administered on 01/29/20at 16:25; Start 01/29/20 at 15:15; Stop 01/29/20 at 15:28; Status DC Azithromycin 250 ml @ 250 mls/hr 1X ONCE IV ; Start 01/30/20 at 11:00; Stop 01/30/20 at 11:59; Status UNV Azithromycin 500 mg/Sodium Chloride 250 ml @ 250 mls/hr 1X ONCE IV Last administered on 01/30/20at 11:00; Start 01/30/20 at 11:00; Stop 01/30/20 at 11:59; Status DC Azithromycin (Zithromax) 500 mg 1X ONCE PO Last administered on 01/31/20at 09:13; Start 01/31/20 at 07:45; Stop 01/31/20 at 07:46; Status DC Potassium Chloride (Klor-Con) 40 meq 1X ONCE PO ; Start 01/31/20 at 10:00; Stop 01/31/20 at 10:01; Status DC Potassium Chloride (Klor-Con) 20 meq [id number] PO ; Start 02/01/20 at 08:00 Active Scripts Active Reported No Known Medications Prior To Admisstion (Info) Each 1 Each 1X Vital Signs Vital Signs Date Time Temp Pulse Resp B/P (MAP) Pulse Ox O2 Delivery O2 Flow Rate FiO2 01/31/20 07:00 98.4 55 16 157/73 (101) 96 Room Air 98.4 Labs Laboratory Tests Test 01/30/20 04:00 01/31/20 09:40 White Blood Count 3.6 x10^3/uL (4.0-11.0) 4.5 x10^3/uL (4.0-11.0) Red Blood Count 3.63 x10^6/uL (3.50-5.40) 4.06 x10^6/uL (3.50-5.40) Hemoglobin 10.9 g/dL (12.0-15.5) 12.2 g/dL (12.0-15.5) Hematocrit 31.8 % (36.0-47.0) 35.7 % (36.0-47.0) Mean Corpuscular Volume 88 fL (79-100) 88 fL (79-100) Mean Corpuscular Hemoglobin 30 pg (25-35) 30 pg (25-35) Mean Corpuscular Hemoglobin Concent 34 g/dL (31-37) 34 g/dL (31-37) Red Cell Distribution Width 13.3 % (11.5-14.5) 13.1 % (11.5-14.5) Platelet Count 161 x10^3/uL (140-400) 204 x10^3/uL (140-400) Neutrophils (%) (Auto) 59 % (31-73) 73 % (31-73) Lymphocytes (%) (Auto) 31 % (24-48) 19 % (24-48) Monocytes (%) (Auto) 9 % (0-9) 7 % (0-9) Eosinophils (%) (Auto) 1 % (0-3) 1 % (0-3) Basophils (%) (Auto) 0 % (0-3) 0 % (0-3) Neutrophils # (Auto) 2.1 x10^3/uL (1.8-7.7) 3.2 x10^3/uL (1.8-7.7) Lymphocytes # (Auto) 1.1 x10^3/uL (1.0-4.8) 0.8 x10^3/uL (1.0-4.8) Monocytes # (Auto) 0.3 x10^3/uL (0.0-1.1) 0.3 x10^3/uL (0.0-1.1) Eosinophils # (Auto) 0.0 x10^3/uL (0.0-0.7) 0.0 x10^3/uL (0.0-0.7) Basophils # (Auto) 0.0 x10^3/uL (0.0-0.2) 0.0 x10^3/uL (0.0-0.2) Sodium Level 140 mmol/L (136-145) 140 mmol/L (136-145) Potassium Level 3.3 mmol/L (3.5-5.1) 3.3 mmol/L (3.5-5.1) Chloride Level 107 mmol/L (98-107) 105 mmol/L (98-107) Carbon Dioxide Level 25 mmol/L (21-32) 29 mmol/L (21-32) Anion Gap 8 (6-14) 6 (6-14) Blood Urea Nitrogen 3 mg/dL (7-20) 2 mg/dL (7-20) Creatinine 0.6 mg/dL (0.6-1.0) 0.6 mg/dL (0.6-1.0) Estimated GFR (Cockcroft-Gault) 104.6 104.6 Glucose Level 136 mg/dL (70-99) 189 mg/dL (70-99) Calcium Level 8.2 mg/dL (8.5-10.1) 8.4 mg/dL (8.5-10.1) Phosphorus Level 3.4 mg/dL (2.6-4.7) Vitamin B12 Level 1130 pg/mL (247-911) Magnesium Level 1.9 mg/dL (1.8-2.4) Laboratory Tests Test 01/31/20 09:40 White Blood Count 4.5 x10^3/uL (4.0-11.0) Red Blood Count 4.06 x10^6/uL (3.50-5.40) Hemoglobin 12.2 g/dL (12.0-15.5) Hematocrit 35.7 % (36.0-47.0) Mean Corpuscular Volume 88 fL (79-100) Mean Corpuscular Hemoglobin 30 pg (25-35) Mean Corpuscular Hemoglobin Concent 34 g/dL (31-37) Red Cell Distribution Width 13.1 % (11.5-14.5) Platelet Count 204 x10^3/uL (140-400) Neutrophils (%) (Auto) 73 % (31-73) Lymphocytes (%) (Auto) 19 % (24-48) Monocytes (%) (Auto) 7 % (0-9) Eosinophils (%) (Auto) 1 % (0-3) Basophils (%) (Auto) 0 % (0-3) Neutrophils # (Auto) 3.2 x10^3/uL (1.8-7.7) Lymphocytes # (Auto) 0.8 x10^3/uL (1.0-4.8) Monocytes # (Auto) 0.3 x10^3/uL (0.0-1.1) Eosinophils # (Auto) 0.0 x10^3/uL (0.0-0.7) Basophils # (Auto) 0.0 x10^3/uL (0.0-0.2) Sodium Level 140 mmol/L (136-145) Potassium Level 3.3 mmol/L (3.5-5.1) Chloride Level 105 mmol/L (98-107) Carbon Dioxide Level 29 mmol/L (21-32) Anion Gap 6 (6-14) Blood Urea Nitrogen 2 mg/dL (7-20) Creatinine 0.6 mg/dL (0.6-1.0) Estimated GFR (Cockcroft-Gault) 104.6 Glucose Level 189 mg/dL (70-99) Calcium Level 8.4 mg/dL (8.5-10.1) Magnesium Level 1.9 mg/dL (1.8-2.4) Allergies Allergies Coded Allergies Type Severity Reaction Last Updated Verified No Known Drug Allergies 01/27/20 No Disposition/Orders: D/C to Home Justicifation of Admission Dx: Justifications for Admission: Justification of Admission Dx: Yes SONIA NASH MD Jan 31, 2020 10:57
[2020-01-31] MEDS ORDERED: POTA20TA4 PO (10:59)
[2020-01-31] MEDS ORDERED: AZIT500T4 PO (10:59)
[2020-01-31 11:00] VITALS: BP 132/59
--- NOTE | 2020-01-31 11:01 | DISCH ---
DISCHARGE INSTRUCTIONS Condition on Discharge Condition on Discharge: Stable Activity After Discharge Activity Instructions for Disc: Activity as tolerated Driving Instructions after Dis: Do not drive today Weight Bearing Status after Di: As tolerated Diet after Discharge Diet after Discharge: Regular Contacting the DR. after DC Call your doctor for: If your condition worsens Follow-Up Follow up with: see pcp next week Follow Up With: GI SOON DIRECTED FOR COLONOSCOPY SONIA NASH MD Jan 31, 2020 11:01
--- NOTE | 2020-01-31 14:17 | NUR ---
Discharge Note: PT DISCHARGED HOME WITH SELF CARE. PT LEFT FACILITY VIA PRIVATE VEHICLE WITH FRIEND AT 1414. PT STABLE AND ALERT UPON DISCHARGE. PT PIV REMOVED FROM R AC WITHOUT COMPLICATIONS, BANDAGE APPLIED. PT EDUCATED ABOUT DISCHARGE INSTRUCTIONS, DISCHARGE MEDICATIONS, AND FOLLOW-UP CARE. PT EDUCATED TO CONTACT GI FOR OUTPATIENT COLONOSCOPY AND TO GET AZITHROMYCIN FROM PHARMACY, NO CONCERNS VOICED AT THIS TIME. PT LEFT WITH ALL PERSONAL BELONGINGS. ETHAN VALLES Discharge instructions and discharge home medications reviewed with Patient and a copy given. All questions have been answered and understanding verbalized.
[2020-02-01] MEDS ORDERED: POTASSIUM CHLORIDE 20 MEQ TABLET.ER. PO SCH (08:00)
== END 2020-01-31 14:14 | disposition home or self-care (01) | DRG 371 ==
LOC: 6 SOUTH 13:45 → 5 NORTH 01-30 07:39
PROVIDERS: ADMIT Family Medicine; ATTEND Family Medicine
DX: A04.5 Campylobacter enteritis (principal); E43 Unspecified severe protein-calorie malnutrition; E86.0 Dehydration; D72.819 Decreased white blood cell count, unspecified; D64.9 Anemia, unspecified; D69.6 Thrombocytopenia, unspecified; Z20.828 Contact with and (suspected) exposure to other viral communicable diseases; E87.6 Hypokalemia; Z68.21 Body mass index [BMI] 21.0-21.9, adult; Z82.49 Family history of ischemic heart disease and other diseases of the circulatory system; Z90.711 Acquired absence of uterus with remaining cervical stump
CPT/HCPCS: 36415; 80048; 80053; 82607; 82728; 83735; 84100; 85025; 86140; 87040; 87086; 87493; 87505; J0456; J0744; J1650; J2405; J3490; J7030; J7050; G0378; U0003-CS